=== PATIENT | female | born 1960 | race Asian ===

== ENCOUNTER 2016-08-17 11:41 | Inpatient (IN) | payer OTHER ==
[~2016-08-17] VITALS: Ht 157.5 cm; Wt 90.1 kg
[~2016-08-17 11:41] MED LIST: ALBU8.5H IH; CEPH500 PO; CLOP75 PO; DOXY100C PO; DULO30CA2 PO; FAMO20 PO; FURO40 PO; GABA-531 PO; GLUC500 PO; HYDR25 PO; INSLAN SQ; LORA10TA7 PO; MECL-111 PO; SENN8.6T12 PO; SIMV-260 PO; TRAZ-147 PO
[2016-08-17 12:36] LABS: GLUCOSE,POINT OF CARE 97 MG/DL (70-110)
[2016-08-17 12:38] LABS: BASOPHILS % (AUTO) 0.5 % (0.0-2.0); EOSINOPHILS % (AUTO) 0.6 % (1.0-6.0); HEMATOCRIT 31.2 % (36-46); HEMOGLOBIN 10.3 g/dL (12.0-16.0); LYMPHOCYTES # (AUTO) 2.1 K/uL (1.0-4.8); LYMPHOCYTES % (AUTO) 11.8 % (22.0-44.0); MEAN CORPUSCULAR HEMOGLOBIN 30.2 pg (26.0-34.0); MEAN CORPUSCULAR HGB CONC 32.9 G/dL (31.0-37.0); MEAN CORPUSCULAR VOLUME 92 fL (80-100); MONOCYTES # (AUTO) 1.1 K/uL (0.1-1.0); NEUTROPHILS # (AUTO) 14.4 K/uL (1.8-7.7); NEUTROPHILS % (AUTO) 81.1 % (40.0-70.0); PLATELET COUNT (AUTO) 270 K/uL (150-450); RED CELL DISTRIBUTION WIDTH 13.3 % (11.5-14.5); WHITE BLOOD COUNT (AUTO) 17.7 K/uL (4.5-11.0)
[2016-08-17 12:52] LABS: ANION GAP 10 mmol/L (8-16); CALCIUM, TOTAL 8.9 mg/dL (8.8-10.5); CARBON DIOXIDE 26 mmol/L (22-29); CHLORIDE 103 mmol/L (98-107); CREATININE 2.09 mg/dL (0.60-1.30); GLOMERULAR FILTR. RATE CALC 24 mL/min (>60); SODIUM SERUM 139 mmol/L (136-145); UREA NITROGEN, BLOOD 42 mg/dL (7-18)
[2016-08-17 12:53] LABS: PROTHROMBIN TIME 10.7 SEC (9.4-11.6)
[2016-08-17 12:55] LABS: ALANINE AMINOTRANSFERASE 27 U/L (12-78); ALBUMIN 3.5 g/dL (3.4-5.0); ASPARTATE AMINOTRANSFERASE 25 U/L (15-37); BILIRUBIN,TOTAL 0.3 mg/dL (0.1-1.0); TOTAL PROTEIN, SERUM 7.1 g/dL (6.4-8.2)
[2016-08-17 13:01] LABS: B-TYPE NATRIURETIC PEPTIDE 152 pg/mL (0-100)
[2016-08-17 13:30] LABS: CREATINE KINASE MB 2.3 ng/mL (0-5); CREATINE KINASE, TOTAL 257 U/L (26-192)
[2016-08-17] MEDS ORDERED: ASPIRIN 81 MG CHEWABLE TABLET PO ONE (14:15)
[2016-08-17] MEDS ORDERED: ACETAMINOPHEN 325 MG TABLET PO ONE (14:30)
[2016-08-17] MEDS ORDERED: LEVOFLOXACIN 500 MG/D5% WATER 100 ML IV ONE (15:00)
[2016-08-17] MEDS ORDERED: SULFAMETHOX/TRIMETH DS 800-160 MG/TABLET PO ONE (15:30)
[2016-08-17] MEDS ORDERED: ACETAMINOPHEN 325 MG TABLET PO PRN (15:30)
[2016-08-17] MEDS ORDERED: 0.9% SODIUM CHLORIDE 10 ML SYRINGE IVP PRN (15:30)
[2016-08-17 15:45] LABS: INFLUENZA TYPE B NEGATIVE FOR TYPE B (NEGATIVE)
[2016-08-17] MEDS ORDERED: MAGNESIUM HYDROXIDE SUSPENSION 30 ML UDCUP PO PRN (16:30)
[2016-08-17] MEDS ORDERED: ALBUTEROL SULFATE 2.5 MG/0.5 ML NEB SOLUTION NEB PRN ×2 (16:30→23:00)
[2016-08-17] MEDS ORDERED: *CLINICAL-LEVOFLOXACIN IVPB DOSING CLINICAL ONE ×2 (16:30)
[2016-08-17] MEDS ORDERED: DEXTROSE 50%-WATER 25 GM/50 ML SYRINGE IVP PRN (16:30)
[2016-08-17] MEDS ORDERED: INSULIN ASPART 100 UNITS/ML SQ PRN (16:30)
[2016-08-17] MEDS ORDERED: VANCOMYCIN HCL 1 GM/D5% WATER 200 ML IV ONE (17:00)
[2016-08-17 18:51] LABS: GLUCOSE,POINT OF CARE 288 MG/DL (70-110)
[2016-08-17 19:16] LABS: APPEARANCE,URINE CLEAR (CLEAR); GLUCOSE, URINE (UA) NEGATIVE (NEGATIVE); KETONES,URINE NEGATIVE (NEGATIVE); LEUKOCYTE ESTERASE ,URINE NEGATIVE (NEGATIVE); OCCULT BLOOD,URINE NEGATIVE (NEGATIVE); PH,URINE 5.5 (5.0-8.0); PROTEIN,URINE POS 1+ (NEGATIVE)
[2016-08-17 19:20] LABS: ADD UA MICROSCOPIC NO
[2016-08-17 19:50] VITALS: BP 116/48
[2016-08-17] MEDS: DOCUSATE SODIUM 100 MG CAPSULE PO SCH (22:35)
[2016-08-17] MEDS: HEPARIN SODIUM,PORCINE 5,000 UNITS/ML VIAL SQ SCH (22:36)
[2016-08-17 23:58] VITALS: BP 140/69
[2016-08-18] MEDS: INSULIN ASPART 100 UNITS/ML SQ PRN ×5 (00:21→20:34)
[2016-08-18] MEDS: ACETAMINOPHEN 325 MG TABLET PO PRN ×2 (00:27→20:35)
[2016-08-18] MEDS: OxyCODONE HCL/ACETAMINOPHEN 5-325 MG TABLET PO PRN ×2 (04:47→12:46)
[2016-08-18 04:59] VITALS: BP 120/53
[2016-08-18] MEDS ORDERED: 0.9% SODIUM CHLORIDE 10 ML SYRINGE IVP PRN (05:30)
[2016-08-18] MEDS ORDERED: INFLUENZA VIRUS VACCINE QVS 2016-17 (3YR+)/PF 60 MCG/0.5 ML SYRINGE IM ONE (05:30)
[2016-08-18 06:11] LABS: BASOPHILS % (AUTO) 0.3 % (0.0-2.0); EOSINOPHILS % (AUTO) 0.6 % (1.0-6.0); HEMATOCRIT 27.2 % (36-46); LYMPHOCYTES # (AUTO) 2.4 K/uL (1.0-4.8); LYMPHOCYTES % (AUTO) 14.7 % (22.0-44.0); MEAN CORPUSCULAR HEMOGLOBIN 30.6 pg (26.0-34.0); MEAN CORPUSCULAR HGB CONC 33.2 G/dL (31.0-37.0); MEAN CORPUSCULAR VOLUME 92 fL (80-100); MONOCYTES # (AUTO) 0.6 K/uL (0.1-1.0); MONOCYTES % (AUTO) 3.8 % (2.0-9.0); NEUTROPHILS % (AUTO) 80.6 % (40.0-70.0); PLATELET COUNT (AUTO) 220 K/uL (150-450); RED BLOOD CELL COUNT(AUTO) 2.95 MIL/uL (4.00-5.20); RED CELL DISTRIBUTION WIDTH 13.4 % (11.5-14.5); WHITE BLOOD COUNT (AUTO) 16.1 K/uL (4.5-11.0)
[2016-08-18 07:17] VITALS: BP 113/52
[2016-08-18 07:19] LABS: CALCIUM, TOTAL 8.5 mg/dL (8.8-10.5); CREATININE 2.36 mg/dL (0.60-1.30); POTASSIUM 4.3 mmol/L (3.5-5.1)
[2016-08-18] MEDS: VANCOMYCIN HCL 1 GM/D5% WATER 200 ML IV SCH (09:01)
[2016-08-18] MEDS: DOCUSATE SODIUM 100 MG CAPSULE PO SCH ×2 (09:01→20:32)
[2016-08-18] MEDS: PANTOPRAZOLE SODIUM 40 MG DR TABLET PO SCH (09:01)
[2016-08-18] MEDS: ASPIRIN 81 MG CHEWABLE TABLET PO SCH (09:01)
[2016-08-18] MEDS: HEPARIN SODIUM,PORCINE 5,000 UNITS/ML VIAL SQ SCH ×2 (09:01→20:32)
[2016-08-18 09:26] LABS: GLUCOSE COMMENT 1 Received Meds; GLUCOSE,POINT OF CARE 187 MG/DL (70-110)
[2016-08-18 09:26] LABS: GLUCOSE,POINT OF CARE 347 MG/DL (70-110)
[2016-08-18] MEDS ORDERED: SODIUM CHLORIDE 0.9% 1,000 ML IV ONE (09:28)
[2016-08-18 10:42] VITALS: BP 134/69
[2016-08-18] MEDS: LEVOFLOXACIN 250 MG/D5% WATER 50 ML IV SCH (11:46)
[2016-08-18 15:43] VITALS: BP 114/50
[2016-08-18 17:36] LABS: GLUCOSE COMMENT 1 Received Meds; GLUCOSE,POINT OF CARE 232 MG/DL (70-110)
[2016-08-18 18:01] LABS: GLUCOSE,POINT OF CARE 242 MG/DL (70-110)
[2016-08-18 19:17] VITALS: BP 118/65
[2016-08-18 20:51] LABS: GLUCOSE COMMENT 1 Received Meds; GLUCOSE,POINT OF CARE 257 MG/DL (70-110)
[2016-08-18] MEDS ORDERED: HydrALAZINE HCL 25 MG TABLET PO SCH (21:00)
[2016-08-18] MEDS ORDERED: INSULIN GLARGINE,HUM.REC.ANLOG 100 UNITS/ML SQ SCH (21:00)
[2016-08-18] MEDS ORDERED: CEPHALEXIN MONOHYDRATE 500 MG CAPSULE PO SCH (21:00)
[2016-08-18 23:37] VITALS: BP 136/59
[2016-08-19] MEDS: OxyCODONE HCL/ACETAMINOPHEN 5-325 MG TABLET PO PRN ×5 (00:58→23:27)
[2016-08-19 04:31] VITALS: BP 148/59
[2016-08-19 05:52] LABS: GLUCOSE COMMENT 1 Received Meds; GLUCOSE,POINT OF CARE 240 MG/DL (70-110)
[2016-08-19] MEDS: INSULIN ASPART 100 UNITS/ML SQ PRN ×4 (05:54→19:49)
[2016-08-19 06:49] LABS: BASOPHILS # (AUTO) 0.01 K/uL (0.00-0.20); BASOPHILS % (AUTO) 0.1 % (0.0-2.0); EOSINOPHILS # (AUTO) 0.08 K/uL (0.00-0.70); EOSINOPHILS % (AUTO) 0.92 % (1.0-6.0); HEMOGLOBIN 9.1 g/dL (12.0-16.0); LYMPHOCYTES # (AUTO) 1.8 K/uL (1.0-4.8); LYMPHOCYTES % (AUTO) 19.9 % (22.0-44.0); MEAN CORPUSCULAR HEMOGLOBIN 31.1 pg (26.0-34.0); MEAN CORPUSCULAR HGB CONC 33.8 G/dL (31.0-37.0); MEAN CORPUSCULAR VOLUME 92 fL (80-100); MONOCYTES # (AUTO) 0.8 K/uL (0.1-1.0); MONOCYTES % (AUTO) 8.4 % (2.0-9.0); NEUTROPHILS # (AUTO) 6.4 K/uL (1.8-7.7); NEUTROPHILS % (AUTO) 70.7 % (40.0-70.0); PLATELET COUNT (AUTO) 212 K/uL (150-450); RED BLOOD CELL COUNT(AUTO) 2.93 MIL/uL (4.00-5.20); WHITE BLOOD COUNT (AUTO) 9.1 K/uL (4.5-11.0)
[2016-08-19 06:59] LABS: CALCIUM, TOTAL 8.8 mg/dL (8.8-10.5); CREATININE 2.21 mg/dL (0.60-1.30); POTASSIUM 4.1 mmol/L (3.5-5.1)
[2016-08-19 07:36] VITALS: BP 153/80
[2016-08-19] MEDS: ASPIRIN 81 MG CHEWABLE TABLET PO SCH (08:48)
[2016-08-19] MEDS: HEPARIN SODIUM,PORCINE 5,000 UNITS/ML VIAL SQ SCH ×2 (08:48→19:46)
[2016-08-19] MEDS: DOCUSATE SODIUM 100 MG CAPSULE PO SCH ×2 (08:48→19:46)
[2016-08-19] MEDS: PANTOPRAZOLE SODIUM 40 MG DR TABLET PO SCH (08:48)
[2016-08-19] MEDS ORDERED: SODIUM CHLORIDE 0.9% 500 ML IV ONE (08:57)
[2016-08-19] MEDS ORDERED: FUROSEMIDE 40 MG TABLET PO SCH (09:00)
[2016-08-19] MEDS ORDERED: LORATADINE 10 MG TABLET PO SCH (09:00)
[2016-08-19] MEDS ORDERED: GABAPENTIN 300 MG CAPSULE PO SCH (09:00)
[2016-08-19] MEDS ORDERED: TraZODone HCL 100 MG TABLET PO SCH (09:00)
[2016-08-19] MEDS ORDERED: CLOPIDOGREL BISULFATE 75 MG TABLET PO SCH (09:00)
[2016-08-19] MEDS ORDERED: MECLIZINE HCL 25 MG TABLET PO SCH (09:00)
[2016-08-19] MEDS ORDERED: SIMVASTATIN 20 MG TABLET PO SCH (09:00)
[2016-08-19] MEDS ORDERED: FAMOTIDINE 20 MG TABLET PO SCH (09:00)
[2016-08-19] MEDS ORDERED: DULoxetine HCL 30 MG CAPSULE PO SCH (09:00)
[2016-08-19] MEDS: VANCOMYCIN HCL 1 GM/D5% WATER 200 ML IV SCH (09:07)
[2016-08-19 11:20] VITALS: BP 157/88
[2016-08-19 13:06] LABS: GLUCOSE COMMENT 1 Received Meds; GLUCOSE,POINT OF CARE 237 MG/DL (70-110)
[2016-08-19] MEDS ORDERED: DiphenhydrAMINE HCL 25 MG CAPSULE PO PRN (14:15)
[2016-08-19] MEDS: LEVOFLOXACIN 250 MG/D5% WATER 50 ML IV SCH (14:30)
[2016-08-19 15:35] VITALS: BP 165/89
[2016-08-19 17:51] LABS: GLUCOSE COMMENT 1 Received Meds; GLUCOSE,POINT OF CARE 223 MG/DL (70-110)
[2016-08-19] MEDS ORDERED: LORazepam 2 MG/ML VIAL IVP ONE (18:00)
[2016-08-19 20:02] LABS: GLUCOSE COMMENT 1 Received Meds; GLUCOSE,POINT OF CARE 262 MG/DL (70-110)
[2016-08-19 20:23] VITALS: BP 162/77
[2016-08-20 00:10] VITALS: BP 160/77
[2016-08-20 04:45] VITALS: BP 162/79
[2016-08-20] MEDS: INSULIN ASPART 100 UNITS/ML SQ PRN ×4 (05:39→20:26)
[2016-08-20 06:12] LABS: GLUCOSE COMMENT 1 Received Meds; GLUCOSE,POINT OF CARE 212 MG/DL (70-110)
[2016-08-20 07:14] LABS: CALCIUM, TOTAL 9.4 mg/dL (8.8-10.5); CREATININE 1.84 mg/dL (0.60-1.30); POTASSIUM 4.1 mmol/L (3.5-5.1)
[2016-08-20 07:20] VITALS: BP 148/80
[2016-08-20] MEDS: PANTOPRAZOLE SODIUM 40 MG DR TABLET PO SCH (08:32)
[2016-08-20] MEDS: ASPIRIN 81 MG CHEWABLE TABLET PO SCH (08:33)
[2016-08-20] MEDS: DOCUSATE SODIUM 100 MG CAPSULE PO SCH ×2 (08:33→20:26)
[2016-08-20] MEDS: OxyCODONE HCL/ACETAMINOPHEN 5-325 MG TABLET PO PRN ×2 (08:33→17:45)
[2016-08-20] MEDS: HEPARIN SODIUM,PORCINE 5,000 UNITS/ML VIAL SQ SCH ×2 (08:34→20:26)
[2016-08-20] MEDS: VANCOMYCIN HCL 1 GM/D5% WATER 200 ML IV SCH (08:34)
[2016-08-20] MEDS: OXYGEN THERAPY IH SCH ×2 (08:35→20:02)
[2016-08-20 11:20] VITALS: BP 156/68
[2016-08-20 11:51] LABS: GLUCOSE COMMENT 1 Received Meds; GLUCOSE,POINT OF CARE 200 MG/DL (70-110)
[2016-08-20] MEDS: LEVOFLOXACIN 250 MG/D5% WATER 50 ML IV SCH (15:47)
[2016-08-20 15:54] VITALS: BP 132/68
[2016-08-20 17:16] LABS: GLUCOSE COMMENT 1 Received Meds; GLUCOSE,POINT OF CARE 219 MG/DL (70-110)
[2016-08-20 20:53] VITALS: BP 154/71
[2016-08-21 00:27] VITALS: BP 144/72
[2016-08-21 01:41] LABS: GLUCOSE,POINT OF CARE 213 MG/DL (70-110)
[2016-08-21] MEDS: INSULIN ASPART 100 UNITS/ML SQ PRN ×2 (05:25→11:34)
[2016-08-21 06:08] LABS: BASOPHILS # (AUTO) 0.04 K/uL (0.00-0.20); BASOPHILS % (AUTO) 0.5 % (0.0-2.0); EOSINOPHILS # (AUTO) 0.21 K/uL (0.00-0.70); EOSINOPHILS % (AUTO) 2.52 % (1.0-6.0); HEMATOCRIT 28.3 % (36-46); HEMOGLOBIN 9.6 g/dL (12.0-16.0); LYMPHOCYTES # (AUTO) 2.3 K/uL (1.0-4.8); LYMPHOCYTES % (AUTO) 27.5 % (22.0-44.0); MEAN CORPUSCULAR HEMOGLOBIN 31.1 pg (26.0-34.0); MEAN CORPUSCULAR HGB CONC 33.9 G/dL (31.0-37.0); MEAN CORPUSCULAR VOLUME 92 fL (80-100); MONOCYTES # (AUTO) 0.9 K/uL (0.1-1.0); MONOCYTES % (AUTO) 11.4 % (2.0-9.0); NEUTROPHILS # (AUTO) 4.7 K/uL (1.8-7.7); PLATELET COUNT (AUTO) 242 K/uL (150-450); RED BLOOD CELL COUNT(AUTO) 3.09 MIL/uL (4.00-5.20); RED CELL DISTRIBUTION WIDTH 12.9 % (11.5-14.5); WHITE BLOOD COUNT (AUTO) 8.2 K/uL (4.5-11.0)
[2016-08-21 06:14] LABS: CALCIUM, TOTAL 9.6 mg/dL (8.8-10.5); CREATININE 1.72 mg/dL (0.60-1.30); POTASSIUM 4.2 mmol/L (3.5-5.1)
[2016-08-21 06:24] VITALS: BP 149/78
[2016-08-21 06:31] LABS: GLUCOSE,POINT OF CARE 179 MG/DL (70-110)
[2016-08-21 07:33] VITALS: BP 155/73
[2016-08-21] MEDS ORDERED: VANCOMYCIN HCL 1.25 GM in DEXTROSE 5%-WATER 250 ML IV SCH (08:00)
[2016-08-21] MEDS: OxyCODONE HCL/ACETAMINOPHEN 5-325 MG TABLET PO PRN (08:23)
[2016-08-21] MEDS: DOCUSATE SODIUM 100 MG CAPSULE PO SCH (08:23)
[2016-08-21] MEDS: ASPIRIN 81 MG CHEWABLE TABLET PO SCH (08:23)
[2016-08-21] MEDS: PANTOPRAZOLE SODIUM 40 MG DR TABLET PO SCH (08:23)
[2016-08-21] MEDS: HEPARIN SODIUM,PORCINE 5,000 UNITS/ML VIAL SQ SCH (08:24)
[2016-08-21] MEDS: OXYGEN THERAPY IH SCH (08:26)
[2016-08-21] MEDS ORDERED: LEVO250 PO (10:49)
[2016-08-21 11:26] VITALS: BP 137/66
[2016-08-21 12:01] LABS: GLUCOSE COMMENT 1 Received Meds; GLUCOSE,POINT OF CARE 223 MG/DL (70-110)
== END 2016-08-21 12:30 | disposition home or self-care (01) | DRG 720 ==
LOC: EMS 11:48 → 5S 17:41 → 6N 08-18 14:23
PROVIDERS: ADMIT Internal Medicine; ATTEND Internal Medicine
DX: A41.9 Sepsis, unspecified organism (principal); I13.0 Hypertensive heart and chronic kidney disease with heart failure and stage 1 through stage 4 chronic kidney disease, or unspecified chronic kidney disease; J18.9 Pneumonia, unspecified organism; E44.0 Moderate protein-calorie malnutrition; E11.22 Type 2 diabetes mellitus with diabetic chronic kidney disease; I50.32 Chronic diastolic (congestive) heart failure; N18.3 Chronic kidney disease, stage 3 (moderate); E66.9 Obesity, unspecified; D63.8 Anemia in other chronic diseases classified elsewhere; E78.00 Pure hypercholesterolemia, unspecified; R53.81 Other malaise; M19.90 Unspecified osteoarthritis, unspecified site; M47.816 Spondylosis without myelopathy or radiculopathy, lumbar region; Z79.4 Long term (current) use of insulin; Z88.0 Allergy status to penicillin; Z88.8 Allergy status to other drugs, medicaments and biological substances; Z79.899 Other long term (current) drug therapy; Z79.02 Long term (current) use of antithrombotics/antiplatelets; Z68.36 Body mass index [BMI] 36.0-36.9, adult; Z28.21 Immunization not carried out because of patient refusal
CPT/HCPCS: 82962; 87040; 87804; 93005; 93306; 96365; 96367; 97110; 97116; 97161; 99285; J1644; J1956; J3370; J7030; J7040; J7060

== ENCOUNTER 2017-02-22 11:24 | Emergency (ER) | payer OTHER ==
[~2017-02-22] VITALS: Ht 157.5 cm; Wt 81.8 kg
[~2017-02-22 11:24] MED LIST changes: -CEPH500 PO; -DOXY100C PO; -GABA-531 PO; -HYDR25 PO; -INSLAN SQ; +LEVO250 PO; -LORA10TA7 PO; -MECL-111 PO; -TRAZ-147 PO
[2017-02-22] MEDS ORDERED: CEPH500 PO (11:55)
[2017-02-22] MEDS ORDERED: SODIUM CHLORIDE 0.9% 1,000 ML IV ONE (13:00)
[2017-02-22] MEDS ORDERED: ONDANSETRON HCL 4 MG/2 ML VIAL IVP ONE ×2 (13:00→15:45)
[2017-02-22 13:26] LABS: BASOPHILS # (AUTO) 0.07 K/uL (0.00-0.20); BASOPHILS % (AUTO) 0.7 % (0.0-2.0); EOSINOPHILS # (AUTO) 0.09 K/uL (0.00-0.70); EOSINOPHILS % (AUTO) 0.87 % (1.0-6.0); HEMATOCRIT 30.2 % (36-46); LYMPHOCYTES # (AUTO) 1.6 K/uL (1.0-4.8); LYMPHOCYTES % (AUTO) 16.3 % (22.0-44.0); MEAN CORPUSCULAR HEMOGLOBIN 30.4 pg (26.0-34.0); MEAN CORPUSCULAR VOLUME 92 fL (80-100); MONOCYTES # (AUTO) 0.8 K/uL (0.1-1.0); MONOCYTES % (AUTO) 7.7 % (2.0-9.0); NEUTROPHILS # (AUTO) 7.3 K/uL (1.8-7.7); NEUTROPHILS % (AUTO) 74.4 % (40.0-70.0); PLATELET COUNT (AUTO) 394 K/uL (150-450); RED BLOOD CELL COUNT(AUTO) 3.28 MIL/uL (4.00-5.20); RED CELL DISTRIBUTION WIDTH 12.8 % (11.5-14.5); WHITE BLOOD COUNT (AUTO) 9.8 K/uL (4.5-11.0)
[2017-02-22 13:38] LABS: CALCIUM, TOTAL 9.6 mg/dL (8.8-10.5); CREATININE 2.13 mg/dL (0.60-1.30); POTASSIUM 3.6 mmol/L (3.5-5.1)
[2017-02-22 13:44] LABS: LACTIC ACID 0.5 mmol/L (0.4-2.0)
[2017-02-22 13:54] LABS: ALBUMIN 2.7 g/dL (3.4-5.0); BILIRUBIN,TOTAL 0.3 mg/dL (0.1-1.0); TOTAL PROTEIN, SERUM 7.5 g/dL (6.4-8.2); URIC ACID 8.7 mg/dL (2.6-7.2)
[2017-02-22 15:45] VITALS: BP 142/69
== END 2017-02-22 16:02 | disposition home or self-care (01) ==
LOC: EMS 11:26
DX: R11.2 Nausea with vomiting, unspecified (principal); E11.43 Type 2 diabetes mellitus with diabetic autonomic (poly)neuropathy; K31.84 Gastroparesis; N18.3 Chronic kidney disease, stage 3 (moderate); I10 Essential (primary) hypertension; E78.00 Pure hypercholesterolemia, unspecified; Z88.0 Allergy status to penicillin; Z88.8 Allergy status to other drugs, medicaments and biological substances
CPT/HCPCS: 36415; 80053; 83605; 83690; 84484; 84550; 85025; 93005; 96361; 96374; 96375; 99285; J2405; J7030

== ENCOUNTER → 2017-08-23 | Outpatient (CLI) | payer OTHER ==
[~2017-08-23] VITALS: Ht 157.5 cm; Wt 82.2 kg
[~2017-08-23] MED LIST changes: -ALBU8.5H IH; +ALBU8.5H8 IH; +ALLO100T PO; +CEPH500 PO; +CHLORHEXIDINE GLUCONATE 4% 118 ML TOPICAL LIQUID TP ONE; +CLON-570 PO; -DULO30CA2 PO; +ERGO500014 PO; +GABA-531 PO; -GLUC500 PO; +HYDR-2924 PO; -LEVO250 PO; +MAGN296S PO; -SENN8.6T12 PO
[2017-08-23 14:07] VITALS: BP 147/54
== END | disposition home or self-care (01) ==
LOC: HBOWC 13:04
PROVIDERS: ATTEND Nurse Practitioner Adult Health
DX: L02.212 Cutaneous abscess of back [any part, except buttock and flank] (principal)

== ENCOUNTER → 2018-10-09 | Outpatient (CLI) | payer OTHER ==
[~2018-10-09] MED LIST changes: -CEPH500 PO; -CHLORHEXIDINE GLUCONATE 4% 118 ML TOPICAL LIQUID TP ONE; -CLOP75 PO; +CLOP75TA3 PO
== END | disposition home or self-care (01) ==
LOC: RADPV 08:21
PROVIDERS: ATTEND Internal Medicine Nephrology
DX: I65.23 Occlusion and stenosis of bilateral carotid arteries (principal); N13.39 Other hydronephrosis
CPT/HCPCS: 76770; 93880

== ENCOUNTER 2021-04-08 16:38 | Inpatient (IN) | payer OTHER ==
[~2021-04-08] VITALS: Ht 154.9 cm; Wt 75.0 kg
[~2021-04-08 16:38] MED LIST changes: -ALLO100T PO; +ALLO100T2 PO; -CLON-570 PO; +CLON0.1T2 PO; -CLOP75TA3 PO; +CLOP75TA60 PO; -ERGO500014 PO; +ERGO500054 PO; +GABA-1181 PO; -GABA-531 PO; -HYDR-2924 PO; +HYDR50TA36 PO; -MAGN296S PO; +MAGN296S82 PO
[2021-04-08 19:56] LABS: BASOPHILS % (AUTO) 0.9 % (0.0-2.0); HEMATOCRIT 30.5 % (36-46); HEMOGLOBIN 9.9 g/dL (12.0-16.0); LYMPHOCYTES # (AUTO) 2.8 K/uL (1.0-4.8); LYMPHOCYTES % (AUTO) 21.1 % (22.0-44.0); MEAN CORPUSCULAR HEMOGLOBIN 29.8 pg (26.0-34.0); MEAN CORPUSCULAR HGB CONC 32.3 G/dL (31.0-37.0); MEAN CORPUSCULAR VOLUME 92 fL (80-100); MONOCYTES # (AUTO) 0.8 K/uL (0.1-1.0); MONOCYTES % (AUTO) 6.1 % (2.0-9.0); NEUTROPHILS # (AUTO) 9.3 K/uL (1.8-7.7); NEUTROPHILS % (AUTO) 70.9 % (40.0-70.0); PLATELET COUNT (AUTO) 297 K/uL (150-450); RED BLOOD CELL COUNT(AUTO) 3.31 MIL/uL (4.00-5.20); RED CELL DISTRIBUTION WIDTH 14.8 % (11.5-14.5)
[2021-04-08] MEDS ORDERED: BUME1TAB34 PO (20:02)
[2021-04-08] MEDS ORDERED: CLON0.3T PO (20:02)
[2021-04-08] MEDS ORDERED: HUMLIS7525 SQ (20:02)
[2021-04-08] MEDS ORDERED: ATOR40TA28 PO (20:02)
[2021-04-08] MEDS ORDERED: LACT30L PO (20:02)
[2021-04-08] MEDS ORDERED: OMEP20 PO (20:02)
[2021-04-08 20:06] LABS: CREATININE 3.37 mg/dL (0.60-1.30); POTASSIUM 3.6 mmol/L (3.5-5.1)
[2021-04-08] MEDS ORDERED: SODIUM CHLORIDE 0.9% 1,000 ML IV ONE (20:15)
[2021-04-08] MEDS ORDERED: ONDANSETRON HCL 4 MG/2 ML VIAL IVP ONE ×2 (20:15→23:15)
[2021-04-08 20:31] LABS: ALBUMIN 2.7 g/dL (3.4-5.0); BILIRUBIN,TOTAL 0.3 mg/dL (0.1-1.0); TOTAL PROTEIN, SERUM 6.7 g/dL (6.4-8.2)
[2021-04-08 20:55] LABS: APPEARANCE,URINE CLEAR (CLEAR); BILIRUBIN,URINE NEGATIVE (NEGATIVE); GLUCOSE, URINE (UA) 100 mg/dL (NEGATIVE); KETONES,URINE TRACE mg/dL (NEGATIVE); LEUKOCYTE ESTERASE ,URINE NEGATIVE (NEGATIVE); NITRATE,URINE NEGATIVE (NEGATIVE); OCCULT BLOOD,URINE NEGATIVE (NEGATIVE); PROTEIN,URINE SEE CONFIRM (NEGATIVE); UROBILINOGEN,URINE 0.2 mg/dL (<=1.0)
[2021-04-08 21:13] LABS: PHOSPHORUS 4.7 mg/dL (2.5-4.9)
[2021-04-08] MEDS ORDERED: BISMUTH SUBSALICYLATE 524 MG/30 ML SUSPENSION UDCUP PO ONE (21:15)
[2021-04-08 21:19] LABS: COVID AG,FIA SOURCE NASOPHARYNGEAL
[2021-04-08 21:52] LABS: MAGNESIUM 1.7 mg/dL (1.80-2.40)
[2021-04-08 22:09] LABS: INFLUENZA TYPE A NEGATIVE FOR TYPE A (NEGATIVE); INFLUENZA TYPE B NEGATIVE FOR TYPE B (NEGATIVE)
[2021-04-08 22:16] LABS: BACTERIA,URINE Rare /HPF (None Seen); COARSE GRANULAR CASTS,URINE 0-2 /LPF (None Seen); RBC,URINE 0-2 /HPF (0-2); WBC,URINE 0-2 /HPF (0-5)
[2021-04-08 22:17] LABS: SULFOSALICYLIC ACID,URINE 4+ (Negative)
[2021-04-08] MEDS ORDERED: MORPHINE SULFATE 4 MG/ML SYRINGE IVP ONE (23:15)
[2021-04-08] MEDS ORDERED: SODIUM CHLORIDE 0.45% 1,000 ML IV SCH (23:30)
[2021-04-08] MEDS: HEPARIN SODIUM,PORCINE 5,000 UNITS/ML VIAL SQ SCH (23:42)
[2021-04-08 23:45] LABS: CREATININE,URINE RANDOM 106.1 mg/dL (30.0-125.0)
[2021-04-09] MEDS: ACETAMINOPHEN 325 MG TABLET PO PRN (01:50)
[2021-04-09] MEDS ORDERED: ALBUTEROL SULFATE HFA 90 MCG/PUFF 8 GM INHALER IH PRN (05:00)
[2021-04-09] MEDS ORDERED: DEXTROSE 50%-WATER 25 GM/50 ML SYRINGE IVP PRN (05:00)
[2021-04-09] MEDS: HEPARIN SODIUM,PORCINE 5,000 UNITS/ML VIAL SQ SCH ×2 (08:48→15:45)
[2021-04-09] MEDS ORDERED: OMEPRAZOLE 20 MG CAPSULE PO SCH (09:00)
[2021-04-09 12:45] VITALS: BP 149/81
[2021-04-09 12:51] LABS: GLUCOMETER DEV NAME(LOC) 6S.1; GLUCOSE,POINT OF CARE 174 MG/DL (70-110)
[2021-04-09] MEDS: ONDANSETRON HCL 4 MG/2 ML VIAL IVP PRN (14:22)
[2021-04-09] MEDS ORDERED: SODIUM BICARBONATE 75 MEQ in SODIUM CHLORIDE 0.45% 1,000 ML IV ONE (14:30)
[2021-04-09] MEDS ORDERED: NIFEdipine 30 MG ER TABLET PO SCH (14:30)
[2021-04-09] MEDS ORDERED: DILT-39 PO (14:34)
[2021-04-09] MEDS ORDERED: ERGO500054 PO (14:34)
[2021-04-09] MEDS: HydrALAZINE HCL 50 MG TABLET PO SCH ×2 (15:45→21:04)
[2021-04-09] MEDS: FAMOTIDINE 10 MG/ML 2 ML VIAL IVP SCH (16:52)
[2021-04-09] MEDS: PROCHLORPERAZINE EDISYLATE 5 MG/ML 2 ML VIAL IVP PRN (18:31)
[2021-04-09 18:50] LABS: GLUCOMETER DEV NAME(LOC) 6S.1; GLUCOSE,POINT OF CARE 162 MG/DL (70-110)
[2021-04-09 20:46] VITALS: BP 179/82
[2021-04-09] MEDS: ATORVASTATIN CALCIUM 40 MG TABLET PO SCH (21:04)
[2021-04-09 21:23] VITALS: BP 179/82
[2021-04-09] MEDS ORDERED: DILTIAZEM HCL 5 MG/ML 5 ML VIAL IVP ONE (21:30)
[2021-04-09 22:42] VITALS: BP 158/75
[2021-04-10] MEDS: ONDANSETRON HCL 4 MG/2 ML VIAL IVP PRN ×2 (01:23→09:12)
[2021-04-10] MEDS: HEPARIN SODIUM,PORCINE 5,000 UNITS/ML VIAL SQ SCH ×3 (01:51→18:02)
[2021-04-10 04:09] VITALS: BP 153/58
[2021-04-10 07:17] LABS: % IRON SATURATION 13.6 % (22-44)
[2021-04-10 08:12] VITALS: BP 148/70
[2021-04-10] MEDS: FAMOTIDINE 10 MG/ML 2 ML VIAL IVP SCH (08:55)
[2021-04-10] MEDS: HydrALAZINE HCL 50 MG TABLET PO SCH ×3 (08:55→20:16)
[2021-04-10 11:21] VITALS: BP 129/66
[2021-04-10 12:12] LABS: BASOPHILS % (AUTO) 0.5 % (0.0-2.0); EOSINOPHILS % (AUTO) 0.2 % (1.0-6.0); HEMATOCRIT 29.8 % (36-46); HEMOGLOBIN 9.6 g/dL (12.0-16.0); LYMPHOCYTES # (AUTO) 1.3 K/uL (1.0-4.8); LYMPHOCYTES % (AUTO) 11.6 % (22.0-44.0); MEAN CORPUSCULAR HEMOGLOBIN 30.1 pg (26.0-34.0); MEAN CORPUSCULAR HGB CONC 32.3 G/dL (31.0-37.0); MEAN CORPUSCULAR VOLUME 93 fL (80-100); MONOCYTES # (AUTO) 0.9 K/uL (0.1-1.0); MONOCYTES % (AUTO) 8.3 % (2.0-9.0); NEUTROPHILS # (AUTO) 8.8 K/uL (1.8-7.7); NEUTROPHILS % (AUTO) 79.4 % (40.0-70.0); PLATELET COUNT (AUTO) 271 K/uL (150-450); RED BLOOD CELL COUNT(AUTO) 3.21 MIL/uL (4.00-5.20); RED CELL DISTRIBUTION WIDTH 14.9 % (11.5-14.5)
[2021-04-10 12:14] LABS: CREATININE 3.63 mg/dL (0.60-1.30); POTASSIUM 3.3 mmol/L (3.5-5.1)
[2021-04-10 12:19] LABS: ALBUMIN 2.8 g/dL (3.4-5.0); BILIRUBIN,TOTAL 0.4 mg/dL (0.1-1.0); TOTAL PROTEIN, SERUM 6.7 g/dL (6.4-8.2)
[2021-04-10] MEDS: SOD FERRIC GLUC COMPLX/SUCROSE 125 MG in SODIUM CHLORIDE 0.9% 100 ML IV SCH (12:47)
[2021-04-10] MEDS: PROCHLORPERAZINE EDISYLATE 5 MG/ML 2 ML VIAL IVP PRN ×2 (12:50→21:28)
[2021-04-10 17:04] VITALS: BP 126/74
[2021-04-10] MEDS ORDERED: DEXTROSE 50%-WATER 25 GM/50 ML SYRINGE IVP PRN (17:15)
[2021-04-10] MEDS: INSULIN LISPRO 100 UNITS/ML SQ PRN (18:03)
[2021-04-10 18:23] LABS: COLLECTION TIME,URINE 24 HR; TPROTEIN TIMED,URINE 1020 mg/dL; TPROTEIN URINE, 24HRS COLL 11475 mg/24Hr (0-165)
[2021-04-10] MEDS ORDERED: POTASSIUM CHLORIDE 20 MEQ ER TABLET PO ONE (18:45)
[2021-04-10 19:10] VITALS: BP 154/72
[2021-04-10] MEDS: ATORVASTATIN CALCIUM 40 MG TABLET PO SCH (20:16)
[2021-04-11] VITALS (7 sets, daily range): BP systolic 113–151; BP diastolic 47–69
[2021-04-11] MEDS: HEPARIN SODIUM,PORCINE 5,000 UNITS/ML VIAL SQ SCH ×4 (00:34→23:48)
[2021-04-11 00:57] LABS: GLUCOMETER DEV NAME(LOC) 5N.1C; GLUCOSE,POINT OF CARE 253 MG/DL (70-110)
[2021-04-11 00:57] LABS: GLUCOMETER DEV NAME(LOC) 5N.3; GLUCOSE,POINT OF CARE 248 MG/DL (70-110)
[2021-04-11 00:57] LABS: GLUCOMETER DEV NAME(LOC) 5N.3; GLUCOSE,POINT OF CARE 213 MG/DL (70-110)
[2021-04-11 00:57] LABS: GLUCOMETER DEV NAME(LOC) 5N.1C; GLUCOSE,POINT OF CARE 259 MG/DL (70-110)
[2021-04-11 04:43] LABS: CREATININE,URINE RANDOM 108.9 mg/dL (30.0-125.0)
[2021-04-11] MEDS: ONDANSETRON HCL 4 MG/2 ML VIAL IVP PRN ×2 (06:29→22:23)
[2021-04-11] MEDS: INSULIN LISPRO 100 UNITS/ML SQ PRN ×4 (07:06→20:12)
[2021-04-11] MEDS: FAMOTIDINE 10 MG/ML 2 ML VIAL IVP SCH (09:20)
[2021-04-11] MEDS: HydrALAZINE HCL 50 MG TABLET PO SCH ×3 (09:25→20:10)
[2021-04-11] MEDS ORDERED: DIGOXIN 250 MCG/ML 2 ML AMP IVP ONE (10:45)
[2021-04-11 12:28] LABS: CREATININE 3.67 mg/dL (0.60-1.30); POTASSIUM 3.5 mmol/L (3.5-5.1)
[2021-04-11 12:35] LABS: BASOPHILS % (AUTO) 0.5 % (0.0-2.0); EOSINOPHILS % (AUTO) 0.2 % (1.0-6.0); HEMATOCRIT 27.9 % (36-46); LYMPHOCYTES # (AUTO) 1.4 K/uL (1.0-4.8); LYMPHOCYTES % (AUTO) 9.6 % (22.0-44.0); MEAN CORPUSCULAR HEMOGLOBIN 30.1 pg (26.0-34.0); MEAN CORPUSCULAR HGB CONC 32.3 G/dL (31.0-37.0); MEAN CORPUSCULAR VOLUME 93 fL (80-100); MONOCYTES # (AUTO) 0.8 K/uL (0.1-1.0); MONOCYTES % (AUTO) 5.5 % (2.0-9.0); NEUTROPHILS # (AUTO) 12.5 K/uL (1.8-7.7); NEUTROPHILS % (AUTO) 84.2 % (40.0-70.0); PLATELET COUNT (AUTO) 248 K/uL (150-450); RED BLOOD CELL COUNT(AUTO) 2.99 MIL/uL (4.00-5.20); RED CELL DISTRIBUTION WIDTH 14.7 % (11.5-14.5)
[2021-04-11] MEDS: SOD FERRIC GLUC COMPLX/SUCROSE 125 MG in SODIUM CHLORIDE 0.9% 100 ML IV SCH (12:36)
[2021-04-11 12:43] LABS: ALBUMIN 2.5 g/dL (3.4-5.0); BILIRUBIN,TOTAL 0.4 mg/dL (0.1-1.0); FREE T4 (FREE THYROXINE) 1.28 ng/dL (0.76-1.46); THYROID STIMULATING HORMONE 0.51 uIU/mL (0.36-3.74); TOTAL PROTEIN, SERUM 6.6 g/dL (6.4-8.2)
[2021-04-11 12:56] LABS: GLUCOMETER DEV NAME(LOC) 5N.3; GLUCOSE,POINT OF CARE 229 MG/DL (70-110)
[2021-04-11] MEDS: POTASSIUM CHL 10 MEQ/WATER 50 ML IV SCH ×3 (14:24→18:05)
[2021-04-11] MEDS ORDERED: SODIUM CHLORIDE 0.9% 1,000 ML ONE (14:38)
[2021-04-11] MEDS ORDERED: METOPROLOL SUCCINATE 25 MG ER TABLET PO SCH (16:15)
[2021-04-11] MEDS: PROCHLORPERAZINE EDISYLATE 5 MG/ML 2 ML VIAL IVP PRN (16:29)
[2021-04-11] MEDS: ATORVASTATIN CALCIUM 40 MG TABLET PO SCH (20:10)
[2021-04-11 20:22] LABS: GLUCOMETER DEV NAME(LOC) 5N.1C; GLUCOSE,POINT OF CARE 254 MG/DL (70-110)
[2021-04-11 20:22] LABS: GLUCOMETER DEV NAME(LOC) 5N.1C; GLUCOSE,POINT OF CARE 213 MG/DL (70-110)
[2021-04-12 00:33] LABS: GLUCOMETER DEV NAME(LOC) 5N.3; GLUCOSE,POINT OF CARE 228 MG/DL (70-110)
[2021-04-12 05:12] VITALS: BP 169/88
[2021-04-12] MEDS: INSULIN LISPRO 100 UNITS/ML SQ PRN ×4 (05:53→21:46)
[2021-04-12 06:24] LABS: GLUCOMETER DEV NAME(LOC) 5S.2B; GLUCOSE,POINT OF CARE 205 MG/DL (70-110)
[2021-04-12 06:49] LABS: BASOPHILS % (AUTO) 0.5 % (0.0-2.0); EOSINOPHILS % (AUTO) 0.3 % (1.0-6.0); HEMATOCRIT 29.6 % (36-46); HEMOGLOBIN 9.7 g/dL (12.0-16.0); LYMPHOCYTES # (AUTO) 1.3 K/uL (1.0-4.8); LYMPHOCYTES % (AUTO) 8.1 % (22.0-44.0); MEAN CORPUSCULAR HEMOGLOBIN 30.6 pg (26.0-34.0); MEAN CORPUSCULAR HGB CONC 32.9 G/dL (31.0-37.0); MEAN CORPUSCULAR VOLUME 93 fL (80-100); MONOCYTES # (AUTO) 0.8 K/uL (0.1-1.0); MONOCYTES % (AUTO) 4.9 % (2.0-9.0); NEUTROPHILS # (AUTO) 14.1 K/uL (1.8-7.7); PLATELET COUNT (AUTO) 253 K/uL (150-450); RED BLOOD CELL COUNT(AUTO) 3.18 MIL/uL (4.00-5.20); RED CELL DISTRIBUTION WIDTH 14.8 % (11.5-14.5)
[2021-04-12 07:13] LABS: ALBUMIN 2.6 g/dL (3.4-5.0); BILIRUBIN,TOTAL 0.4 mg/dL (0.1-1.0); CREATININE 3.33 mg/dL (0.60-1.30); POTASSIUM 3.8 mmol/L (3.5-5.1); TOTAL PROTEIN, SERUM 6.6 g/dL (6.4-8.2)
[2021-04-12 07:16] LABS: NEUTROPHILS % (AUTO) 86.2 % (40.0-70.0)
[2021-04-12 07:56] VITALS: BP 163/73
[2021-04-12] MEDS: HydrALAZINE HCL 50 MG TABLET PO SCH ×3 (08:19→20:25)
[2021-04-12] MEDS: FAMOTIDINE 10 MG/ML 2 ML VIAL IVP SCH (08:22)
[2021-04-12] MEDS: HEPARIN SODIUM,PORCINE 5,000 UNITS/ML VIAL SQ SCH ×2 (08:22→15:17)
[2021-04-12 11:27] VITALS: BP 147/52
[2021-04-12] MEDS: SOD FERRIC GLUC COMPLX/SUCROSE 125 MG in SODIUM CHLORIDE 0.9% 100 ML IV SCH (12:10)
[2021-04-12] MEDS ORDERED: DILTIAZEM HCL 125 MG in DEXTROSE 5%-WATER 100 ML IV SCH (12:15)
[2021-04-12] MEDS: CefTRIAXone 1 GM/DEXTROSE 50 ML IV SCH (13:58)
[2021-04-12 15:53] VITALS: BP 139/75
[2021-04-12] MEDS: DILTIAZEM HCL CD 120 MG ER CAPSULE PO SCH (17:32)
[2021-04-12 17:37] LABS: GLUCOMETER DEV NAME(LOC) 5N.3; GLUCOSE,POINT OF CARE 260 MG/DL (70-110)
[2021-04-12 20:14] VITALS: BP 136/78
[2021-04-12] MEDS: ATORVASTATIN CALCIUM 40 MG TABLET PO SCH (20:25)
[2021-04-13] VITALS (7 sets, daily range): BP systolic 104–155; BP diastolic 5–100
[2021-04-13] MEDS: HEPARIN SODIUM,PORCINE 5,000 UNITS/ML VIAL SQ SCH ×4 (00:41→23:55)
[2021-04-13 03:41] LABS: GLUCOMETER DEV NAME(LOC) 5S.2B; GLUCOSE,POINT OF CARE 247 MG/DL (70-110)
[2021-04-13] MEDS: ONDANSETRON HCL 4 MG/2 ML VIAL IVP PRN ×2 (05:18→12:04)
[2021-04-13] MEDS: INSULIN LISPRO 100 UNITS/ML SQ PRN ×4 (06:11→22:04)
[2021-04-13 08:11] LABS: BASOPHILS % (AUTO) 0.9 % (0.0-2.0); EOSINOPHILS % (AUTO) 0.9 % (1.0-6.0); HEMATOCRIT 30.5 % (36-46); HEMOGLOBIN 9.9 g/dL (12.0-16.0); LYMPHOCYTES # (AUTO) 1.5 K/uL (1.0-4.8); LYMPHOCYTES % (AUTO) 14.4 % (22.0-44.0); MEAN CORPUSCULAR HEMOGLOBIN 30.3 pg (26.0-34.0); MEAN CORPUSCULAR HGB CONC 32.6 G/dL (31.0-37.0); MEAN CORPUSCULAR VOLUME 93 fL (80-100); MONOCYTES # (AUTO) 0.8 K/uL (0.1-1.0); MONOCYTES % (AUTO) 7.7 % (2.0-9.0); NEUTROPHILS # (AUTO) 8.2 K/uL (1.8-7.7); NEUTROPHILS % (AUTO) 76.1 % (40.0-70.0); PLATELET COUNT (AUTO) 227 K/uL (150-450); RED BLOOD CELL COUNT(AUTO) 3.27 MIL/uL (4.00-5.20); RED CELL DISTRIBUTION WIDTH 14.5 % (11.5-14.5)
[2021-04-13] MEDS: FAMOTIDINE 10 MG/ML 2 ML VIAL IVP SCH (08:17)
[2021-04-13] MEDS: DILTIAZEM HCL CD 120 MG ER CAPSULE PO SCH (08:18)
[2021-04-13] MEDS: HydrALAZINE HCL 50 MG TABLET PO SCH ×3 (08:18→21:16)
[2021-04-13 08:22] LABS: ALBUMIN 2.2 g/dL (3.4-5.0); BILIRUBIN,TOTAL 0.3 mg/dL (0.1-1.0); CALCIUM, TOTAL 8.8 mg/dL (8.8-10.5); CREATININE 3.64 mg/dL (0.60-1.30); MAGNESIUM 1.7 mg/dL (1.80-2.40); POTASSIUM 3.7 mmol/L (3.5-5.1); TOTAL PROTEIN, SERUM 6.3 g/dL (6.4-8.2)
[2021-04-13 12:22] LABS: GLUCOMETER DEV NAME(LOC) 5S.1; GLUCOSE,POINT OF CARE 219 MG/DL (70-110)
[2021-04-13] MEDS: SOD FERRIC GLUC COMPLX/SUCROSE 125 MG in SODIUM CHLORIDE 0.9% 100 ML IV SCH (12:25)
[2021-04-13] MEDS: CefTRIAXone 1 GM/DEXTROSE 50 ML IV SCH (14:29)
[2021-04-13 16:58] LABS: APPEARANCE,URINE CLEAR (CLEAR); BILIRUBIN,URINE NEGATIVE (NEGATIVE); GLUCOSE, URINE (UA) 500 mg/dL (NEGATIVE); KETONES,URINE TRACE mg/dL (NEGATIVE); LEUKOCYTE ESTERASE ,URINE TRACE (NEGATIVE); NITRATE,URINE NEGATIVE (NEGATIVE); OCCULT BLOOD,URINE TRACE (NEGATIVE); PH,URINE 6.5 (5.0-8.0); PROTEIN,URINE SEE CONFIRM (NEGATIVE); UROBILINOGEN,URINE 0.2 mg/dL (<=1.0)
[2021-04-13 17:04] LABS: BACTERIA,URINE Rare /HPF (None Seen); RBC,URINE 0-2 /HPF (0-2); SQUAMOUS EPITHELIAL CELL,UR Few /LPF (None Seen); SULFOSALICYLIC ACID,URINE 3+ (Negative)
[2021-04-13 19:47] LABS: GLUCOMETER DEV NAME(LOC) 5N.1C; GLUCOSE,POINT OF CARE 258 MG/DL (70-110)
[2021-04-13 19:47] LABS: GLUCOMETER DEV NAME(LOC) 5N.1C; GLUCOSE,POINT OF CARE 294 MG/DL (70-110)
[2021-04-13] MEDS: ATORVASTATIN CALCIUM 40 MG TABLET PO SCH (21:16)
[2021-04-14] VITALS (7 sets, daily range): BP systolic 133–163; BP diastolic 58–80
[2021-04-14] MEDS: ACETAMINOPHEN 325 MG TABLET PO PRN ×2 (04:46→18:32)
[2021-04-14] MEDS ORDERED: SODIUM CHLORIDE 0.9% 1,000 ML ONE (04:55)
[2021-04-14] MEDS: INSULIN LISPRO 100 UNITS/ML SQ PRN ×4 (05:40→20:35)
[2021-04-14] MEDS: OMEPRAZOLE 20 MG CAPSULE PO SCH (06:16)
[2021-04-14] MEDS: ONDANSETRON HCL 4 MG/2 ML VIAL IVP PRN (07:59)
[2021-04-14] MEDS: HEPARIN SODIUM,PORCINE 5,000 UNITS/ML VIAL SQ SCH ×2 (08:02→15:56)
[2021-04-14] MEDS: HydrALAZINE HCL 50 MG TABLET PO SCH ×4 (08:04→21:00)
[2021-04-14] MEDS: DILTIAZEM HCL CD 120 MG ER CAPSULE PO SCH (08:04)
[2021-04-14 09:34] LABS: BASOPHILS % (AUTO) 0.9 % (0.0-2.0); HEMATOCRIT 28.8 % (36-46); HEMOGLOBIN 9.6 g/dL (12.0-16.0); LYMPHOCYTES % (AUTO) 22.7 % (22.0-44.0); MEAN CORPUSCULAR HGB CONC 33.3 G/dL (31.0-37.0); MEAN CORPUSCULAR VOLUME 93 fL (80-100); MONOCYTES % (AUTO) 10.9 % (2.0-9.0); NEUTROPHILS # (AUTO) 5.6 K/uL (1.8-7.7); NEUTROPHILS % (AUTO) 63.5 % (40.0-70.0); PLATELET COUNT (AUTO) 241 K/uL (150-450); RED CELL DISTRIBUTION WIDTH 14.9 % (11.5-14.5)
[2021-04-14 10:03] LABS: ALBUMIN 2.5 g/dL (3.4-5.0); BILIRUBIN,TOTAL 0.2 mg/dL (0.1-1.0); CREATININE 3.99 mg/dL (0.60-1.30); POTASSIUM 3.6 mmol/L (3.5-5.1); TOTAL PROTEIN, SERUM 6.5 g/dL (6.4-8.2)
[2021-04-14] MEDS: DOXAZOSIN MESYLATE 2 MG TABLET PO SCH (12:19)
[2021-04-14 12:33] LABS: GLUCOMETER DEV NAME(LOC) 5S.2B; GLUCOSE,POINT OF CARE 297 MG/DL (70-110)
[2021-04-14 12:33] LABS: GLUCOMETER DEV NAME(LOC) 5S.1; GLUCOSE,POINT OF CARE 261 MG/DL (70-110)
[2021-04-14 12:33] LABS: GLUCOMETER DEV NAME(LOC) 5S.1; GLUCOSE,POINT OF CARE 220 MG/DL (70-110)
[2021-04-14] MEDS: SOD FERRIC GLUC COMPLX/SUCROSE 125 MG in SODIUM CHLORIDE 0.9% 100 ML IV SCH (12:50)
[2021-04-14] MEDS: CefTRIAXone 1 GM/DEXTROSE 50 ML IV SCH (14:13)
[2021-04-14] MEDS: ATORVASTATIN CALCIUM 40 MG TABLET PO SCH (20:33)
[2021-04-14] MEDS: APIXABAN 2.5 MG TABLET PO SCH (21:14)
[2021-04-15] VITALS (8 sets, daily range): BP systolic 96–149; BP diastolic 50–70
[2021-04-15 00:32] LABS: GLUCOMETER DEV NAME(LOC) 5S.2B; GLUCOSE,POINT OF CARE 288 MG/DL (70-110)
[2021-04-15 00:32] LABS: GLUCOMETER DEV NAME(LOC) 5S.2B; GLUCOSE,POINT OF CARE 288 MG/DL (70-110)
[2021-04-15] MEDS: OMEPRAZOLE 20 MG CAPSULE PO SCH (05:52)
[2021-04-15] MEDS: INSULIN LISPRO 100 UNITS/ML SQ PRN ×4 (05:53→20:37)
[2021-04-15 06:45] LABS: BASOPHILS % (AUTO) 0.7 % (0.0-2.0); HEMATOCRIT 25.9 % (36-46); HEMOGLOBIN 8.6 g/dL (12.0-16.0); LYMPHOCYTES # (AUTO) 1.9 K/uL (1.0-4.8); LYMPHOCYTES % (AUTO) 26.9 % (22.0-44.0); MEAN CORPUSCULAR HGB CONC 33.3 G/dL (31.0-37.0); MEAN CORPUSCULAR VOLUME 93 fL (80-100); MONOCYTES # (AUTO) 0.9 K/uL (0.1-1.0); MONOCYTES % (AUTO) 13.1 % (2.0-9.0); NEUTROPHILS % (AUTO) 57.3 % (40.0-70.0); PLATELET COUNT (AUTO) 215 K/uL (150-450); RED BLOOD CELL COUNT(AUTO) 2.78 MIL/uL (4.00-5.20); RED CELL DISTRIBUTION WIDTH 14.8 % (11.5-14.5)
[2021-04-15 07:21] LABS: ALBUMIN 2.2 g/dL (3.4-5.0); BILIRUBIN,TOTAL 0.2 mg/dL (0.1-1.0); CALCIUM, TOTAL 8.1 mg/dL (8.8-10.5); CREATININE 4.28 mg/dL (0.60-1.30); POTASSIUM 3.4 mmol/L (3.5-5.1); TOTAL PROTEIN, SERUM 5.6 g/dL (6.4-8.2)
[2021-04-15] MEDS: APIXABAN 2.5 MG TABLET PO SCH ×2 (08:44→20:32)
[2021-04-15 09:00] LABS: GLUCOMETER DEV NAME(LOC) 5S.2B; GLUCOSE,POINT OF CARE 227 MG/DL (70-110)
[2021-04-15] MEDS: HydrALAZINE HCL 50 MG TABLET PO SCH ×3 (09:00→20:36)
[2021-04-15] MEDS: DOXAZOSIN MESYLATE 2 MG TABLET PO SCH (09:00)
[2021-04-15] MEDS: POTASSIUM CHL 10 MEQ/WATER 50 ML IV SCH ×4 (10:42→16:04)
[2021-04-15 13:03] LABS: GLUCOMETER DEV NAME(LOC) 5S.2B; GLUCOSE,POINT OF CARE 255 MG/DL (70-110)
[2021-04-15] MEDS: SOD FERRIC GLUC COMPLX/SUCROSE 125 MG in SODIUM CHLORIDE 0.9% 100 ML IV SCH (14:21)
[2021-04-15] MEDS: CefTRIAXone 1 GM/DEXTROSE 50 ML IV SCH (15:28)
[2021-04-15] MEDS: DILTIAZEM HCL CD 180 MG ER CAPSULE PO SCH (15:43)
[2021-04-15 17:43] LABS: GLUCOMETER DEV NAME(LOC) 5S.2B; GLUCOSE,POINT OF CARE 243 MG/DL (70-110)
[2021-04-15] MEDS: ATORVASTATIN CALCIUM 40 MG TABLET PO SCH (20:32)
[2021-04-16 01:03] LABS: GLUCOMETER DEV NAME(LOC) 5S.2B; GLUCOSE,POINT OF CARE 214 MG/DL (70-110)
[2021-04-16 04:27] VITALS: BP 138/56
[2021-04-16] MEDS: ACETAMINOPHEN 325 MG TABLET PO PRN ×2 (04:36→12:54)
[2021-04-16] MEDS: INSULIN LISPRO 100 UNITS/ML SQ PRN ×2 (06:12→11:22)
[2021-04-16 06:28] LABS: BASOPHILS % (AUTO) 0.6 % (0.0-2.0); EOSINOPHILS % (AUTO) 2.4 % (1.0-6.0); HEMATOCRIT 26.3 % (36-46); HEMOGLOBIN 8.8 g/dL (12.0-16.0); LYMPHOCYTES # (AUTO) 1.6 K/uL (1.0-4.8); LYMPHOCYTES % (AUTO) 23.6 % (22.0-44.0); MEAN CORPUSCULAR HEMOGLOBIN 31.2 pg (26.0-34.0); MEAN CORPUSCULAR HGB CONC 33.5 G/dL (31.0-37.0); MEAN CORPUSCULAR VOLUME 93 fL (80-100); MONOCYTES # (AUTO) 0.9 K/uL (0.1-1.0); MONOCYTES % (AUTO) 12.8 % (2.0-9.0); NEUTROPHILS # (AUTO) 4.2 K/uL (1.8-7.7); NEUTROPHILS % (AUTO) 60.6 % (40.0-70.0); PLATELET COUNT (AUTO) 223 K/uL (150-450); RED BLOOD CELL COUNT(AUTO) 2.83 MIL/uL (4.00-5.20)
[2021-04-16 06:39] LABS: GLUCOMETER DEV NAME(LOC) 5S.1; GLUCOSE,POINT OF CARE 197 MG/DL (70-110)
[2021-04-16 06:43] LABS: ALBUMIN 2.5 g/dL (3.4-5.0); BILIRUBIN,TOTAL 0.2 mg/dL (0.1-1.0); CALCIUM, TOTAL 8.2 mg/dL (8.8-10.5); CREATININE 4.52 mg/dL (0.60-1.30); MAGNESIUM 1.9 mg/dL (1.80-2.40); PHOSPHORUS 3.1 mg/dL (2.5-4.9); POTASSIUM 3.9 mmol/L (3.5-5.1); TOTAL PROTEIN, SERUM 5.9 g/dL (6.4-8.2)
[2021-04-16] MEDS: DILTIAZEM HCL CD 180 MG ER CAPSULE PO SCH (07:56)
[2021-04-16] MEDS: APIXABAN 2.5 MG TABLET PO SCH (07:56)
[2021-04-16 08:00] VITALS: BP 140/54
[2021-04-16] MEDS: DOXAZOSIN MESYLATE 2 MG TABLET PO SCH (08:57)
[2021-04-16] MEDS: HydrALAZINE HCL 50 MG TABLET PO SCH (08:58)
[2021-04-16 10:52] VITALS: BP 120/55
[2021-04-16] MEDS ORDERED: APIX2.5T PO (12:59)
[2021-04-16] MEDS: SOD FERRIC GLUC COMPLX/SUCROSE 125 MG in SODIUM CHLORIDE 0.9% 100 ML IV SCH (13:00)
[2021-04-16] MEDS ORDERED: DOXA2TAB PO (13:00)
[2021-04-16] MEDS: CefTRIAXone 1 GM/DEXTROSE 50 ML IV SCH (14:00)
[2021-04-16 22:06] LABS: GLUCOMETER DEV NAME(LOC) 5S.1; GLUCOSE,POINT OF CARE 191 MG/DL (70-110)
== END 2021-04-16 14:10 | disposition home or self-care (01) | DRG 682 ==
LOC: EMS 16:38 → 6S 04-09 06:24 → 5N 04-09 21:55 → 5S 04-12 16:50
PROVIDERS: ADMIT Internal Medicine; ATTEND Internal Medicine
DX: N17.9 Acute kidney failure, unspecified (principal); E43 Unspecified severe protein-calorie malnutrition; K52.9 Noninfective gastroenteritis and colitis, unspecified; E11.22 Type 2 diabetes mellitus with diabetic chronic kidney disease; E11.319 Type 2 diabetes mellitus with unspecified diabetic retinopathy without macular edema; E11.51 Type 2 diabetes mellitus with diabetic peripheral angiopathy without gangrene; I12.9 Hypertensive chronic kidney disease with stage 1 through stage 4 chronic kidney disease, or unspecified chronic kidney disease; I48.91 Unspecified atrial fibrillation; I65.29 Occlusion and stenosis of unspecified carotid artery; E86.0 Dehydration; E11.65 Type 2 diabetes mellitus with hyperglycemia; E55.9 Vitamin D deficiency, unspecified; E78.5 Hyperlipidemia, unspecified; E87.6 Hypokalemia; K21.9 Gastro-esophageal reflux disease without esophagitis; E78.00 Pure hypercholesterolemia, unspecified; N18.9 Chronic kidney disease, unspecified; D63.1 Anemia in chronic kidney disease; Z20.822 Contact with and (suspected) exposure to COVID-19; Z83.3 Family history of diabetes mellitus; E27.8 Other specified disorders of adrenal gland; Z86.14 Personal history of Methicillin resistant Staphylococcus aureus infection; Z88.0 Allergy status to penicillin; Z88.8 Allergy status to other drugs, medicaments and biological substances; Z68.31 Body mass index [BMI] 31.0-31.9, adult
CPT/HCPCS: 71045; 74022; 74176; 80053; 81001; 81002; 81050; 82043; 82306; 82550; 82570; 82728; 82962; 83540; 83550; 83690; 83735; 83880; 83970; 84100; 84156; 84166; 84300; 84439; 84443; 84484; 85025; 87040; 87086; 87804; 93005; 93306; 97162; 99285; J0696; J0780; J1160; J1644; J2270; J2405; J2916; J3480; J3490; J7030; J7050; J7060; 36415-L1; 36415-TC; U0003

== ENCOUNTER 2021-05-12 17:29 | Inpatient (IN) | payer OTHER ==
[~2021-05-12] VITALS: Ht 154.9 cm; Wt 83.1 kg
[~2021-05-12 17:29] MED LIST changes: -ALLO100T2 PO; +APIX2.5T PO; +ATOR40TA28 PO; -CLON0.1T2 PO; -CLOP75TA60 PO; +DILT-95 PO; -FAMO20 PO; -FURO40 PO; -GABA-1181 PO; -MAGN296S82 PO; +OMEP20 PO; -SIMV-260 PO
[2021-05-12 18:51] LABS: BASOPHILS % (AUTO) 0.7 % (0.0-2.0); HEMATOCRIT 27.3 % (36-46); HEMOGLOBIN 9.2 g/dL (12.0-16.0); LYMPHOCYTES # (AUTO) 1.4 K/uL (1.0-4.8); LYMPHOCYTES % (AUTO) 16.1 % (22.0-44.0); MEAN CORPUSCULAR HEMOGLOBIN 33.1 pg (26.0-34.0); MEAN CORPUSCULAR HGB CONC 33.6 G/dL (31.0-37.0); MEAN CORPUSCULAR VOLUME 99 fL (80-100); MONOCYTES # (AUTO) 0.5 K/uL (0.1-1.0); MONOCYTES % (AUTO) 6.2 % (2.0-9.0); NEUTROPHILS # (AUTO) 6.6 K/uL (1.8-7.7); PLATELET COUNT (AUTO) 257 K/uL (150-450); RED BLOOD CELL COUNT(AUTO) 2.77 MIL/uL (4.00-5.20); RED CELL DISTRIBUTION WIDTH 18.3 % (11.5-14.5)
[2021-05-12] MEDS ORDERED: ONDANSETRON HCL 4 MG TABLET PO ONE (19:00)
[2021-05-12 19:02] LABS: CALCIUM, TOTAL 8.7 mg/dL (8.8-10.5); CREATININE 3.37 mg/dL (0.60-1.30); POTASSIUM 3.2 mmol/L (3.5-5.1)
[2021-05-12 19:26] LABS: ALBUMIN 2.7 g/dL (3.4-5.0); BILIRUBIN,TOTAL 0.4 mg/dL (0.1-1.0); MAGNESIUM 1.4 mg/dL (1.80-2.40); TOTAL PROTEIN, SERUM 6.2 g/dL (6.4-8.2)
[2021-05-12] MEDS ORDERED: SODIUM CHLORIDE 0.9% 1,000 ML IV ONE (19:30)
[2021-05-12] MEDS ORDERED: POTASSIUM CHLORIDE 20 MEQ ER TABLET PO ONE (19:30)
[2021-05-12 20:55] LABS: GLUCOMETER DEV NAME(LOC) ERT.5; GLUCOSE,POINT OF CARE 112 MG/DL (70-110)
[2021-05-12 21:15] LABS: COVID AG,FIA SOURCE NASOPHARYNGEAL
[2021-05-12] MEDS ORDERED: ACETAMINOPHEN 325 MG TABLET PO PRN (23:00)
[2021-05-12] MEDS ORDERED: 0.9% SODIUM CHLORIDE 10 ML SYRINGE IVP PRN (23:00)
[2021-05-12] MEDS ORDERED: ONDANSETRON HCL 4 MG/2 ML VIAL IVP PRN (23:00)
[2021-05-12 23:40] LABS: APPEARANCE,URINE CLEAR (CLEAR); BILIRUBIN,URINE NEGATIVE (NEGATIVE); GLUCOSE, URINE (UA) NEGATIVE (NEGATIVE); KETONES,URINE NEGATIVE (NEGATIVE); LEUKOCYTE ESTERASE ,URINE NEGATIVE (NEGATIVE); NITRATE,URINE NEGATIVE (NEGATIVE); OCCULT BLOOD,URINE NEGATIVE (NEGATIVE); PROTEIN,URINE SEE CONFIRM (NEGATIVE); UROBILINOGEN,URINE 0.2 mg/dL (<=1.0)
[2021-05-12 23:46] LABS: SULFOSALICYLIC ACID,URINE 4+ (Negative)
[2021-05-13] MEDS ORDERED: BISACODYL 10 MG RECTAL RECTAL SUPPOSITORY PR PRN
[2021-05-13 00:07] LABS: BACTERIA,URINE Few /HPF (None Seen); RBC,URINE None Seen /HPF (0-2); WBC,URINE 0-2 /HPF (0-5)
[2021-05-13] MEDS: ZOLPIDEM TARTRATE 5 MG TABLET PO PRN (03:25)
[2021-05-13 05:21] VITALS: BP 127/74
[2021-05-13 07:11] VITALS: BP 128/55
[2021-05-13] MEDS: HydrALAZINE HCL 50 MG TABLET PO SCH ×3 (08:19→20:06)
[2021-05-13] MEDS: PANTOPRAZOLE SODIUM 40 MG DR TABLET PO SCH (08:19)
[2021-05-13] MEDS: DILTIAZEM HCL CD 180 MG ER CAPSULE PO SCH (08:19)
[2021-05-13] MEDS: DOCUSATE SODIUM 100 MG CAPSULE PO SCH ×3 (08:19→20:06)
[2021-05-13] MEDS: APIXABAN 2.5 MG TABLET PO SCH ×2 (08:19→20:06)
[2021-05-13] MEDS ORDERED: MAGNESIUM SULFATE 3 GM in DEXTROSE 5%-WATER 100 ML IV ONE (09:15)
[2021-05-13] MEDS ORDERED: EPOETIN ALFA 10,000 UNITS/ML VIAL SQ ONE (09:15)
[2021-05-13] MEDS ORDERED: POTASSIUM CHLORIDE 10% 40 MEQ/30 ML LIQUID UDCUP PO ONE (09:15)
[2021-05-13] MEDS ORDERED: SODIUM CHLORIDE 0.9% 250 ML IV ONE (10:13)
[2021-05-13 11:05] LABS: BASOPHILS % (AUTO) 0.7 % (0.0-2.0); EOSINOPHILS % (AUTO) 1.7 % (1.0-6.0); HEMATOCRIT 26.8 % (36-46); HEMOGLOBIN 8.9 g/dL (12.0-16.0); LYMPHOCYTES # (AUTO) 1.3 K/uL (1.0-4.8); LYMPHOCYTES % (AUTO) 17.2 % (22.0-44.0); MEAN CORPUSCULAR HEMOGLOBIN 33.3 pg (26.0-34.0); MEAN CORPUSCULAR HGB CONC 33.1 G/dL (31.0-37.0); MEAN CORPUSCULAR VOLUME 101 fL (80-100); MONOCYTES # (AUTO) 0.5 K/uL (0.1-1.0); NEUTROPHILS # (AUTO) 5.3 K/uL (1.8-7.7); NEUTROPHILS % (AUTO) 73.4 % (40.0-70.0); PLATELET COUNT (AUTO) 235 K/uL (150-450); RED BLOOD CELL COUNT(AUTO) 2.67 MIL/uL (4.00-5.20); RED CELL DISTRIBUTION WIDTH 17.9 % (11.5-14.5)
[2021-05-13] MEDS ORDERED: DEXTROSE 5%-0.2% SODIUM CHL 1,000 ML IV SCH (11:15)
[2021-05-13 11:16] VITALS: BP 139/74
[2021-05-13 11:20] LABS: CALCIUM, TOTAL 8.3 mg/dL (8.8-10.5); CREATININE 3.74 mg/dL (0.60-1.30); POTASSIUM 4.2 mmol/L (3.5-5.1)
[2021-05-13] MEDS ORDERED: DEXTROSE 50%-WATER 25 GM/50 ML SYRINGE IVP PRN (12:30)
[2021-05-13] MEDS: INSULIN LISPRO 100 UNITS/ML SQ PRN ×3 (12:47→21:18)
[2021-05-13 12:49] LABS: GLUCOMETER DEV NAME(LOC) 5N.1C; GLUCOSE,POINT OF CARE 128 MG/DL (70-110)
[2021-05-13 15:10] VITALS: BP 127/50
[2021-05-13 17:45] LABS: GLUCOMETER DEV NAME(LOC) 5S.2B; GLUCOSE,POINT OF CARE 330 MG/DL (70-110)
[2021-05-13 17:45] LABS: GLUCOMETER DEV NAME(LOC) 5S.2B; GLUCOSE,POINT OF CARE 332 MG/DL (70-110)
[2021-05-13] MEDS: ACETAMINOPHEN 325 MG TABLET PO PRN (18:32)
[2021-05-13] MEDS: ERYTHROMYCIN 0.5% 3.5 GM TUBE OPHTHALMIC OINTMENT OU SCH (20:06)
[2021-05-13] MEDS: ATORVASTATIN CALCIUM 40 MG TABLET PO SCH (20:06)
[2021-05-13 20:26] VITALS: BP 142/71
[2021-05-13] MEDS: MORPHINE SULFATE 2 MG/ML SYRINGE IVP PRN (20:54)
[2021-05-13 21:26] LABS: GLUCOMETER DEV NAME(LOC) 5S.2B; GLUCOSE,POINT OF CARE 380 MG/DL (70-110)
[2021-05-13 23:51] VITALS: BP 122/68
[2021-05-14 05:19] VITALS: BP 141/59
[2021-05-14] MEDS: INSULIN LISPRO 100 UNITS/ML SQ PRN ×4 (06:14→17:23)
[2021-05-14 06:32] LABS: GLUCOMETER DEV NAME(LOC) 5S.2B; GLUCOSE,POINT OF CARE 294 MG/DL (70-110)
[2021-05-14 06:51] LABS: BASOPHILS % (AUTO) 0.6 % (0.0-2.0); EOSINOPHILS % (AUTO) 1.8 % (1.0-6.0); HEMATOCRIT 25.2 % (36-46); HEMOGLOBIN 8.4 g/dL (12.0-16.0); LYMPHOCYTES # (AUTO) 1.6 K/uL (1.0-4.8); LYMPHOCYTES % (AUTO) 19.6 % (22.0-44.0); MEAN CORPUSCULAR HEMOGLOBIN 33.6 pg (26.0-34.0); MEAN CORPUSCULAR HGB CONC 33.2 G/dL (31.0-37.0); MEAN CORPUSCULAR VOLUME 101 fL (80-100); MONOCYTES # (AUTO) 0.7 K/uL (0.1-1.0); MONOCYTES % (AUTO) 8.5 % (2.0-9.0); NEUTROPHILS # (AUTO) 5.7 K/uL (1.8-7.7); NEUTROPHILS % (AUTO) 69.5 % (40.0-70.0); PLATELET COUNT (AUTO) 222 K/uL (150-450); RED BLOOD CELL COUNT(AUTO) 2.49 MIL/uL (4.00-5.20); RED CELL DISTRIBUTION WIDTH 17.7 % (11.5-14.5)
[2021-05-14 07:05] LABS: CALCIUM, TOTAL 8.2 mg/dL (8.8-10.5); CREATININE 3.96 mg/dL (0.60-1.30); POTASSIUM 4.8 mmol/L (3.5-5.1)
[2021-05-14 08:47] VITALS: BP 125/51
[2021-05-14] MEDS: ERYTHROMYCIN 0.5% 3.5 GM TUBE OPHTHALMIC OINTMENT OU SCH ×3 (09:45→12:54)
[2021-05-14] MEDS: HydrALAZINE HCL 50 MG TABLET PO SCH ×3 (09:45→20:37)
[2021-05-14] MEDS: DOCUSATE SODIUM 100 MG CAPSULE PO SCH ×2 (09:45→20:37)
[2021-05-14] MEDS: APIXABAN 2.5 MG TABLET PO SCH ×2 (09:46→20:37)
[2021-05-14] MEDS: PANTOPRAZOLE SODIUM 40 MG DR TABLET PO SCH (09:46)
[2021-05-14] MEDS: DILTIAZEM HCL CD 180 MG ER CAPSULE PO SCH (09:46)
[2021-05-14 10:35] LABS: MAGNESIUM 2.6 mg/dL (1.80-2.40); PHOSPHORUS 6.7 mg/dL (2.5-4.9)
[2021-05-14] MEDS: EPOETIN ALFA 10,000 UNITS/ML VIAL SQ SCH ×2 (11:00→13:07)
[2021-05-14] MEDS ORDERED: FUROSEMIDE 40 MG/4 ML VIAL IVP ONE (11:00)
[2021-05-14 11:39] VITALS: BP 119/52
[2021-05-14] MEDS ORDERED: DEXTROSE 50%-WATER 25 GM/50 ML SYRINGE IVP PRN (11:45)
[2021-05-14 13:07] LABS: GLUCOMETER DEV NAME(LOC) 5S.2B; GLUCOSE,POINT OF CARE 373 MG/DL (70-110)
[2021-05-14 16:11] VITALS: BP 120/50
[2021-05-14 17:58] LABS: GLUCOMETER DEV NAME(LOC) 5S.2B; GLUCOSE,POINT OF CARE 250 MG/DL (70-110)
[2021-05-14 20:20] VITALS: BP 134/50
[2021-05-14] MEDS: ATORVASTATIN CALCIUM 40 MG TABLET PO SCH (20:38)
[2021-05-14 21:06] LABS: GLUCOMETER DEV NAME(LOC) 5S.2B; GLUCOSE,POINT OF CARE 355 MG/DL (70-110)
[2021-05-14] MEDS ORDERED: DEXTROSE 50%-WATER 25 GM/50 ML SYG IVP PRN (21:30)
[2021-05-14] MEDS ORDERED: DiphenhydrAMINE HCL 25 MG CAPSULE PO ONE (21:30)
[2021-05-14] MEDS: INSULIN REGULAR, HUMAN 100 UNITS/ML SQ PRN (22:23)
[2021-05-15 00:04] VITALS: BP 136/65
[2021-05-15] MEDS: ACETAMINOPHEN 325 MG TABLET PO PRN (05:42)
[2021-05-15 05:50] VITALS: BP 133/54
[2021-05-15 06:06] LABS: CREATININE 4.08 mg/dL (0.60-1.30); MAGNESIUM 2.2 mg/dL (1.80-2.40); PHOSPHORUS 5.6 mg/dL (2.5-4.9); POTASSIUM 5.2 mmol/L (3.5-5.1)
[2021-05-15 06:06] LABS: GLUCOMETER DEV NAME(LOC) 5S.2B; GLUCOSE,POINT OF CARE 240 MG/DL (70-110)
[2021-05-15 06:09] LABS: BASOPHILS % (AUTO) 0.3 % (0.0-2.0); EOSINOPHILS % (AUTO) 1.6 % (1.0-6.0); HEMATOCRIT 24.6 % (36-46); HEMOGLOBIN 8.1 g/dL (12.0-16.0); LYMPHOCYTES # (AUTO) 2.2 K/uL (1.0-4.8); LYMPHOCYTES % (AUTO) 21.3 % (22.0-44.0); MEAN CORPUSCULAR HEMOGLOBIN 33.2 pg (26.0-34.0); MEAN CORPUSCULAR HGB CONC 33.1 G/dL (31.0-37.0); MEAN CORPUSCULAR VOLUME 100 fL (80-100); MONOCYTES # (AUTO) 0.9 K/uL (0.1-1.0); MONOCYTES % (AUTO) 9.1 % (2.0-9.0); NEUTROPHILS % (AUTO) 67.7 % (40.0-70.0); PLATELET COUNT (AUTO) 232 K/uL (150-450); RED BLOOD CELL COUNT(AUTO) 2.45 MIL/uL (4.00-5.20); RED CELL DISTRIBUTION WIDTH 17.3 % (11.5-14.5)
[2021-05-15] MEDS: INSULIN REGULAR, HUMAN 100 UNITS/ML SQ PRN ×5 (06:34→20:57)
[2021-05-15 07:33] VITALS: BP 123/44
[2021-05-15] MEDS: DOCUSATE SODIUM 100 MG CAPSULE PO SCH ×2 (08:44→20:56)
[2021-05-15] MEDS: DILTIAZEM HCL CD 180 MG ER CAPSULE PO SCH (08:44)
[2021-05-15] MEDS: HydrALAZINE HCL 50 MG TABLET PO SCH ×3 (08:45→20:55)
[2021-05-15] MEDS: PANTOPRAZOLE SODIUM 40 MG DR TABLET PO SCH (08:45)
[2021-05-15] MEDS: APIXABAN 2.5 MG TABLET PO SCH ×2 (08:45→20:55)
[2021-05-15 11:26] LABS: GLUCOMETER DEV NAME(LOC) 5S.2B; GLUCOSE,POINT OF CARE 399 MG/DL (70-110)
[2021-05-15 11:32] VITALS: BP 138/60
[2021-05-15] MEDS: CALCIUM ACETATE 667 MG CAPSULE PO SCH ×2 (12:31→17:29)
[2021-05-15] MEDS: SODIUM ZIRCONIUM CYCLOSILICATE 5 GM POWDER PACKET PO SCH (12:31)
[2021-05-15 15:12] VITALS: BP 144/71
[2021-05-15 15:18] LABS: GLUCOSE,POINT OF CARE 74 MG/DL (70-110)
[2021-05-15] MEDS: MAGNESIUM HYDROXIDE SUSPENSION 30 ML UDCUP PO PRN (15:30)
[2021-05-15 17:45] LABS: GLUCOMETER DEV NAME(LOC) 5S.2B; GLUCOSE,POINT OF CARE 403 MG/DL (70-110)
[2021-05-15 19:30] VITALS: BP 152/62
[2021-05-15] MEDS: ATORVASTATIN CALCIUM 40 MG TABLET PO SCH (20:56)
[2021-05-15] MEDS: ERYTHROMYCIN 0.5% 3.5 GM TUBE OPHTHALMIC OINTMENT OU SCH (20:58)
[2021-05-15] MEDS ORDERED: INSULIN REGULAR, HUMAN 100 UNITS/ML SQ ONE (21:00)
[2021-05-15] MEDS ORDERED: INSULIN REGULAR, HUMAN 100 UNITS/ML IVP ONE (21:00)
[2021-05-15] MEDS: ZOLPIDEM TARTRATE 5 MG TABLET PO PRN (21:27)
[2021-05-16] VITALS (7 sets, daily range): BP systolic 137–156; BP diastolic 48–79
[2021-05-16] MEDS ORDERED: INSULIN REGULAR, HUMAN 100 UNITS/ML SQ ONE (06:15)
[2021-05-16 07:23] LABS: GLUCOMETER DEV NAME(LOC) 5S.2B; GLUCOSE,POINT OF CARE 409 MG/DL (70-110)
[2021-05-16 07:23] LABS: GLUCOMETER DEV NAME(LOC) 5S.2B; GLUCOSE,POINT OF CARE 421 MG/DL (70-110)
[2021-05-16 07:34] LABS: BASOPHILS % (AUTO) 0.6 % (0.0-2.0); EOSINOPHILS % (AUTO) 1.3 % (1.0-6.0); HEMATOCRIT 25.1 % (36-46); HEMOGLOBIN 8.2 g/dL (12.0-16.0); LYMPHOCYTES # (AUTO) 1.6 K/uL (1.0-4.8); LYMPHOCYTES % (AUTO) 17.5 % (22.0-44.0); MEAN CORPUSCULAR HEMOGLOBIN 33.1 pg (26.0-34.0); MEAN CORPUSCULAR HGB CONC 32.8 G/dL (31.0-37.0); MEAN CORPUSCULAR VOLUME 101 fL (80-100); MONOCYTES # (AUTO) 0.9 K/uL (0.1-1.0); MONOCYTES % (AUTO) 9.4 % (2.0-9.0); NEUTROPHILS # (AUTO) 6.5 K/uL (1.8-7.7); NEUTROPHILS % (AUTO) 71.2 % (40.0-70.0); PLATELET COUNT (AUTO) 237 K/uL (150-450); RED BLOOD CELL COUNT(AUTO) 2.49 MIL/uL (4.00-5.20); RED CELL DISTRIBUTION WIDTH 16.8 % (11.5-14.5)
[2021-05-16 07:54] LABS: CALCIUM, TOTAL 8.4 mg/dL (8.8-10.5); CREATININE 4.14 mg/dL (0.60-1.30); MAGNESIUM 2.4 mg/dL (1.80-2.40); PHOSPHORUS 3.6 mg/dL (2.5-4.9); POTASSIUM 5.2 mmol/L (3.5-5.1)
[2021-05-16] MEDS: DOCUSATE SODIUM 100 MG CAPSULE PO SCH ×2 (08:39→20:04)
[2021-05-16] MEDS: HydrALAZINE HCL 50 MG TABLET PO SCH ×3 (08:39→20:03)
[2021-05-16] MEDS: DILTIAZEM HCL CD 180 MG ER CAPSULE PO SCH (08:39)
[2021-05-16] MEDS: SODIUM ZIRCONIUM CYCLOSILICATE 5 GM POWDER PACKET PO SCH (08:39)
[2021-05-16] MEDS: PANTOPRAZOLE SODIUM 40 MG DR TABLET PO SCH (08:40)
[2021-05-16] MEDS: APIXABAN 2.5 MG TABLET PO SCH ×2 (08:40→20:03)
[2021-05-16] MEDS: CALCIUM ACETATE 667 MG CAPSULE PO SCH ×3 (08:40→17:03)
[2021-05-16] MEDS: INSULIN REGULAR, HUMAN 100 UNITS/ML SQ PRN ×4 (08:43→20:04)
[2021-05-16] MEDS: ERYTHROMYCIN 0.5% 3.5 GM TUBE OPHTHALMIC OINTMENT OU SCH ×2 (08:44→20:07)
[2021-05-16] MEDS: INSULIN REGULAR, HUMAN 100 UNITS/ML SQ SCH ×2 (11:36→17:12)
[2021-05-16 11:52] LABS: GLUCOMETER DEV NAME(LOC) 5S.2B; GLUCOSE,POINT OF CARE 304 MG/DL (70-110)
[2021-05-16] MEDS ORDERED: SODIUM CHLORIDE 0.9% 1,000 ML IV ONE (17:15)
[2021-05-16 17:22] LABS: GLUCOMETER DEV NAME(LOC) 5S.2B; GLUCOSE,POINT OF CARE 273 MG/DL (70-110)
[2021-05-16] MEDS: ATORVASTATIN CALCIUM 40 MG TABLET PO SCH (20:03)
[2021-05-16 21:47] LABS: GLUCOMETER DEV NAME(LOC) 5S.2B; GLUCOSE,POINT OF CARE 323 MG/DL (70-110)
[2021-05-17 05:10] VITALS: BP 160/67
[2021-05-17] MEDS: INSULIN REGULAR, HUMAN 100 UNITS/ML SQ SCH ×3 (06:30→17:30)
[2021-05-17] MEDS: INSULIN REGULAR, HUMAN 100 UNITS/ML SQ PRN ×4 (06:30→20:51)
[2021-05-17 07:27] LABS: EOSINOPHILS % (AUTO) 1.3 % (1.0-6.0); HEMATOCRIT 25.8 % (36-46); HEMOGLOBIN 8.5 g/dL (12.0-16.0); LYMPHOCYTES # (AUTO) 1.6 K/uL (1.0-4.8); LYMPHOCYTES % (AUTO) 17.3 % (22.0-44.0); MEAN CORPUSCULAR HEMOGLOBIN 32.7 pg (26.0-34.0); MEAN CORPUSCULAR HGB CONC 32.8 G/dL (31.0-37.0); MEAN CORPUSCULAR VOLUME 100 fL (80-100); MONOCYTES # (AUTO) 0.7 K/uL (0.1-1.0); MONOCYTES % (AUTO) 7.3 % (2.0-9.0); NEUTROPHILS # (AUTO) 6.6 K/uL (1.8-7.7); NEUTROPHILS % (AUTO) 73.1 % (40.0-70.0); PLATELET COUNT (AUTO) 243 K/uL (150-450); RED BLOOD CELL COUNT(AUTO) 2.58 MIL/uL (4.00-5.20); RED CELL DISTRIBUTION WIDTH 17.2 % (11.5-14.5)
[2021-05-17 07:36] LABS: CALCIUM, TOTAL 8.6 mg/dL (8.8-10.5); CREATININE 3.64 mg/dL (0.60-1.30); MAGNESIUM 2.1 mg/dL (1.80-2.40); PHOSPHORUS 3.1 mg/dL (2.5-4.9); POTASSIUM 4.6 mmol/L (3.5-5.1)
[2021-05-17 07:38] LABS: MAGNESIUM 2.1 mg/dL (1.80-2.40); PHOSPHORUS 3.1 mg/dL (2.5-4.9)
[2021-05-17 07:39] VITALS: BP 134/77
[2021-05-17] MEDS: HydrALAZINE HCL 50 MG TABLET PO SCH ×3 (09:00→20:49)
[2021-05-17] MEDS: APIXABAN 2.5 MG TABLET PO SCH (09:15)
[2021-05-17] MEDS: PANTOPRAZOLE SODIUM 40 MG DR TABLET PO SCH (09:15)
[2021-05-17] MEDS: DOCUSATE SODIUM 100 MG CAPSULE PO SCH ×2 (09:15→20:50)
[2021-05-17] MEDS: CALCIUM ACETATE 667 MG CAPSULE PO SCH ×3 (09:15→16:57)
[2021-05-17] MEDS: DILTIAZEM HCL CD 180 MG ER CAPSULE PO SCH (09:18)
[2021-05-17] MEDS: SODIUM ZIRCONIUM CYCLOSILICATE 5 GM POWDER PACKET PO SCH (09:19)
[2021-05-17] MEDS: ERYTHROMYCIN 0.5% 3.5 GM TUBE OPHTHALMIC OINTMENT OU SCH ×2 (09:19→20:49)
[2021-05-17 11:23] VITALS: BP 142/72
[2021-05-17] MEDS ORDERED: SODIUM CHLORIDE 0.9% 1,000 ML IV ONE (13:00)
[2021-05-17 15:04] VITALS: BP 152/78
[2021-05-17] MEDS: ONDANSETRON HCL 4 MG/2 ML VIAL IVP PRN (16:57)
[2021-05-17 19:15] VITALS: BP 151/84
[2021-05-17 20:43] LABS: GLUCOMETER DEV NAME(LOC) 5S.1; GLUCOSE,POINT OF CARE 240 MG/DL (70-110)
[2021-05-17 20:43] LABS: GLUCOMETER DEV NAME(LOC) 5S.1; GLUCOSE,POINT OF CARE 210 MG/DL (70-110)
[2021-05-17] MEDS: ATORVASTATIN CALCIUM 40 MG TABLET PO SCH (20:50)
[2021-05-17] MEDS: ETHYL ALCOHOL 62% ANTISEPTIC NASAL INHALANT 0.6 ML AMPUL NASAL SCH (21:00)
[2021-05-17] MEDS: DiphenhydrAMINE HCL 25 MG CAPSULE PO SCH (21:16)
[2021-05-17 23:45] VITALS: BP 144/71
[2021-05-18] MEDS: DiphenhydrAMINE HCL 25 MG CAPSULE PO SCH (02:37)
[2021-05-18 03:40] VITALS: BP 141/62
[2021-05-18 04:37] LABS: GLUCOMETER DEV NAME(LOC) 5S.2B; GLUCOSE,POINT OF CARE 259 MG/DL (70-110)
[2021-05-18 06:58] LABS: CREATININE 3.55 mg/dL (0.60-1.30); POTASSIUM 4.5 mmol/L (3.5-5.1)
[2021-05-18 06:59] LABS: CALCIUM, TOTAL 9.1 mg/dL (8.8-10.5); MAGNESIUM 1.8 mg/dL (1.80-2.40)
[2021-05-18 07:00] LABS: BASOPHILS % (AUTO) 0.9 % (0.0-2.0); HEMATOCRIT 25.8 % (36-46); HEMOGLOBIN 8.6 g/dL (12.0-16.0); LYMPHOCYTES # (AUTO) 1.4 K/uL (1.0-4.8); LYMPHOCYTES % (AUTO) 16.6 % (22.0-44.0); MEAN CORPUSCULAR HEMOGLOBIN 33.5 pg (26.0-34.0); MEAN CORPUSCULAR HGB CONC 33.3 G/dL (31.0-37.0); MEAN CORPUSCULAR VOLUME 101 fL (80-100); MONOCYTES # (AUTO) 0.7 K/uL (0.1-1.0); MONOCYTES % (AUTO) 8.2 % (2.0-9.0); NEUTROPHILS # (AUTO) 6.3 K/uL (1.8-7.7); NEUTROPHILS % (AUTO) 73.3 % (40.0-70.0); PLATELET COUNT (AUTO) 239 K/uL (150-450); RED BLOOD CELL COUNT(AUTO) 2.56 MIL/uL (4.00-5.20); RED CELL DISTRIBUTION WIDTH 17.7 % (11.5-14.5)
[2021-05-18] MEDS: INSULIN REGULAR, HUMAN 100 UNITS/ML SQ SCH ×3 (07:30→17:40)
[2021-05-18 07:37] VITALS: BP 136/72
[2021-05-18] MEDS: CALCIUM ACETATE 667 MG CAPSULE PO SCH ×3 (08:00→18:06)
[2021-05-18] MEDS ORDERED: HEPARIN SODIUM,PORCINE 5,000 UNITS/ML VIAL ONE (08:44)
[2021-05-18] MEDS ORDERED: SODIUM CHLORIDE 0.9% 20 ML ONE (08:45)
[2021-05-18] MEDS ORDERED: SODIUM CHLORIDE 0.9% 100 ML ONE (08:45)
[2021-05-18] MEDS ORDERED: VANCOMYCIN HCL 1 GM/VIAL ONE (08:45)
[2021-05-18] MEDS ORDERED: LIDOCAINE/PF 1% 30 ML VIAL ONE (08:45)
[2021-05-18] MEDS ORDERED: SODIUM CHLORIDE 0.9% 1,000 ML IV ONE (08:50)
[2021-05-18] MEDS: ETHYL ALCOHOL 62% ANTISEPTIC NASAL INHALANT 0.6 ML AMPUL NASAL SCH ×2 (08:59→20:06)
[2021-05-18] MEDS: ERYTHROMYCIN 0.5% 3.5 GM TUBE OPHTHALMIC OINTMENT OU SCH ×2 (08:59→20:06)
[2021-05-18] MEDS: DILTIAZEM HCL CD 180 MG ER CAPSULE PO SCH (09:00)
[2021-05-18] MEDS: HydrALAZINE HCL 50 MG TABLET PO SCH ×3 (09:00→23:35)
[2021-05-18] MEDS: PANTOPRAZOLE SODIUM 40 MG DR TABLET PO SCH (09:00)
[2021-05-18] MEDS: DOCUSATE SODIUM 100 MG CAPSULE PO SCH ×2 (09:00→20:06)
[2021-05-18] MEDS: SODIUM ZIRCONIUM CYCLOSILICATE 5 GM POWDER PACKET PO SCH (09:00)
[2021-05-18] MEDS ORDERED: MEPERIDINE-PF 25 MG/ML VIAL IVP PRN (10:00)
[2021-05-18] MEDS ORDERED: HYDROmorphone 2 MG/ML VIAL IVP PRN (10:00)
[2021-05-18] MEDS ORDERED: PROTAMINE SULFATE 10 MG/ML 5 ML VIAL ONE (11:27)
[2021-05-18] MEDS ORDERED: MIDAZOLAM HCL 2 MG/2 ML VIAL IVP ONE (12:00)
[2021-05-18] MEDS ORDERED: KETAMINE HCL 50 MG/ML 10 ML VIAL IVP ONE (12:00)
[2021-05-18] MEDS ORDERED: 0.9% SODIUM CHLORIDE 10 ML VIAL IVP ONE (12:00)
[2021-05-18] MEDS ORDERED: FentaNYL CITRATE PF 100 MCG/2 ML VIAL IVP ONE (12:00)
[2021-05-18] MEDS ORDERED: PROPOFOL 1% 20 ML VIAL IVP ONE (12:00)
[2021-05-18] MEDS ORDERED: HEPARIN SODIUM,PORCINE 1,000 UNITS/ML 10 ML VIAL IVP ONE (12:00)
[2021-05-18] MEDS ORDERED: FentaNYL CITRATE PF 100 MCG/2 ML VIAL ONE (12:04)
[2021-05-18] MEDS: FentaNYL CITRATE PF 100 MCG/2 ML VIAL IVP PRN ×2 (12:05→12:34)
[2021-05-18] MEDS: MORPHINE SULFATE 2 MG/ML SYRINGE IVP PRN ×2 (14:53→19:54)
[2021-05-18] MEDS: ONDANSETRON HCL 4 MG/2 ML VIAL IVP PRN ×2 (14:54→19:52)
[2021-05-18 15:32] VITALS: BP 163/90
[2021-05-18] MEDS: HYDROCODONE/ACETAMINOPHEN 5-325 MG TABLET PO PRN ×2 (17:32→23:34)
[2021-05-18] MEDS: INSULIN REGULAR, HUMAN 100 UNITS/ML SQ PRN ×2 (17:40→21:47)
[2021-05-18 18:17] LABS: GLUCOMETER DEV NAME(LOC) 5S.1; GLUCOSE,POINT OF CARE 241 MG/DL (70-110)
[2021-05-18 19:55] LABS: GLUCOMETER DEV NAME(LOC) 5N.1C; GLUCOSE,POINT OF CARE 224 MG/DL (70-110)
[2021-05-18 20:02] VITALS: BP 156/72
[2021-05-18] MEDS: OXYGEN THERAPY IH SCH (20:06)
[2021-05-18] MEDS: ATORVASTATIN CALCIUM 40 MG TABLET PO SCH (21:42)
[2021-05-18 23:35] VITALS: BP 195/73
[2021-05-19] VITALS (8 sets, daily range): BP systolic 137–166; BP diastolic 63–87
[2021-05-19] MEDS ORDERED: DIGOXIN 250 MCG/ML 2 ML AMP IVP ONE ×2 (02:30→03:00)
[2021-05-19] MEDS: APIXABAN 2.5 MG TABLET PO SCH ×2 (02:39→22:22)
[2021-05-19] MEDS: ZOLPIDEM TARTRATE 5 MG TABLET PO PRN (02:55)
[2021-05-19] MEDS: INSULIN REGULAR, HUMAN 100 UNITS/ML SQ PRN ×4 (06:33→22:27)
[2021-05-19] MEDS: MORPHINE SULFATE 2 MG/ML SYRINGE IVP PRN ×3 (06:35→15:26)
[2021-05-19 07:10] LABS: BASOPHILS % (AUTO) 0.8 % (0.0-2.0); EOSINOPHILS % (AUTO) 1.5 % (1.0-6.0); HEMOGLOBIN 8.9 g/dL (12.0-16.0); LYMPHOCYTES # (AUTO) 1.4 K/uL (1.0-4.8); LYMPHOCYTES % (AUTO) 15.3 % (22.0-44.0); MEAN CORPUSCULAR HEMOGLOBIN 33.2 pg (26.0-34.0); MEAN CORPUSCULAR VOLUME 101 fL (80-100); MONOCYTES # (AUTO) 0.9 K/uL (0.1-1.0); MONOCYTES % (AUTO) 9.8 % (2.0-9.0); NEUTROPHILS # (AUTO) 6.5 K/uL (1.8-7.7); NEUTROPHILS % (AUTO) 72.6 % (40.0-70.0); PLATELET COUNT (AUTO) 252 K/uL (150-450); RED BLOOD CELL COUNT(AUTO) 2.68 MIL/uL (4.00-5.20); RED CELL DISTRIBUTION WIDTH 17.4 % (11.5-14.5)
[2021-05-19 07:21] LABS: CALCIUM, TOTAL 8.8 mg/dL (8.8-10.5); CREATININE 3.38 mg/dL (0.60-1.30); POTASSIUM 4.5 mmol/L (3.5-5.1)
[2021-05-19] MEDS: OXYGEN THERAPY IH SCH ×2 (07:59→22:30)
[2021-05-19] MEDS: MAGNESIUM HYDROXIDE SUSPENSION 30 ML UDCUP PO PRN (08:01)
[2021-05-19] MEDS: INSULIN REGULAR, HUMAN 100 UNITS/ML SQ SCH ×3 (08:01→17:29)
[2021-05-19] MEDS: DILTIAZEM HCL CD 180 MG ER CAPSULE PO SCH (08:01)
[2021-05-19] MEDS: HydrALAZINE HCL 50 MG TABLET PO SCH ×3 (08:01→22:22)
[2021-05-19] MEDS: ETHYL ALCOHOL 62% ANTISEPTIC NASAL INHALANT 0.6 ML AMPUL NASAL SCH ×2 (08:01→21:00)
[2021-05-19] MEDS: PANTOPRAZOLE SODIUM 40 MG DR TABLET PO SCH (08:01)
[2021-05-19] MEDS: CALCIUM ACETATE 667 MG CAPSULE PO SCH ×3 (08:02→17:57)
[2021-05-19] MEDS: DOCUSATE SODIUM 100 MG CAPSULE PO SCH ×2 (08:02→22:22)
[2021-05-19] MEDS ORDERED: HEPARIN SODIUM,PORCINE 5,000 UNITS/ML VIAL SQ SCH (09:00)
[2021-05-19] MEDS: ERYTHROMYCIN 0.5% 3.5 GM TUBE OPHTHALMIC OINTMENT OU SCH ×3 (09:00→22:22)
[2021-05-19 14:56] LABS: GLUCOMETER DEV NAME(LOC) 5N.1C; GLUCOSE,POINT OF CARE 249 MG/DL (70-110)
[2021-05-19 14:57] LABS: GLUCOMETER DEV NAME(LOC) 5N.1C; GLUCOSE,POINT OF CARE 211 MG/DL (70-110)
[2021-05-19 14:57] LABS: GLUCOMETER DEV NAME(LOC) 5S.1; GLUCOSE,POINT OF CARE 208 MG/DL (70-110)
[2021-05-19 20:19] LABS: GLUCOMETER DEV NAME(LOC) 5N.3; GLUCOSE,POINT OF CARE 285 MG/DL (70-110)
[2021-05-19 20:19] LABS: GLUCOMETER DEV NAME(LOC) 5N.3; GLUCOSE,POINT OF CARE 166 MG/DL (70-110)
[2021-05-19 22:17] LABS: GLUCOMETER DEV NAME(LOC) 5N.3; GLUCOSE,POINT OF CARE 240 MG/DL (70-110)
[2021-05-19] MEDS: ATORVASTATIN CALCIUM 40 MG TABLET PO SCH (22:22)
[2021-05-19] MEDS: HYDROCODONE/ACETAMINOPHEN 5-325 MG TABLET PO PRN (22:28)
[2021-05-20 03:43] VITALS: BP 125/63
[2021-05-20 06:01] LABS: GLUCOMETER DEV NAME(LOC) 5S.1; GLUCOSE,POINT OF CARE 265 MG/DL (70-110)
[2021-05-20] MEDS: INSULIN REGULAR, HUMAN 100 UNITS/ML SQ SCH ×2 (06:31→11:29)
[2021-05-20] MEDS: INSULIN REGULAR, HUMAN 100 UNITS/ML SQ PRN ×2 (06:33→11:29)
[2021-05-20 07:51] VITALS: BP 138/66
[2021-05-20 08:28] LABS: CALCIUM, TOTAL 8.7 mg/dL (8.8-10.5); CREATININE 3.8 mg/dL (0.60-1.30); POTASSIUM 4.4 mmol/L (3.5-5.1)
[2021-05-20] MEDS: ETHYL ALCOHOL 62% ANTISEPTIC NASAL INHALANT 0.6 ML AMPUL NASAL SCH (08:32)
[2021-05-20] MEDS: HYDROCODONE/ACETAMINOPHEN 5-325 MG TABLET PO PRN (08:32)
[2021-05-20] MEDS: CALCIUM ACETATE 667 MG CAPSULE PO SCH ×2 (08:32→12:33)
[2021-05-20] MEDS: DOCUSATE SODIUM 100 MG CAPSULE PO SCH (08:32)
[2021-05-20] MEDS: APIXABAN 2.5 MG TABLET PO SCH (08:32)
[2021-05-20] MEDS: ERYTHROMYCIN 0.5% 3.5 GM TUBE OPHTHALMIC OINTMENT OU SCH (08:32)
[2021-05-20] MEDS: PANTOPRAZOLE SODIUM 40 MG DR TABLET PO SCH (08:32)
[2021-05-20] MEDS: OXYGEN THERAPY IH SCH (08:33)
[2021-05-20] MEDS: HydrALAZINE HCL 50 MG TABLET PO SCH (08:33)
[2021-05-20] MEDS: DILTIAZEM HCL CD 180 MG ER CAPSULE PO SCH (08:33)
[2021-05-20] MEDS ORDERED: FUROSEMIDE 20 MG TABLET PO SCH (09:00)
[2021-05-20] MEDS ORDERED: FURO20 PO (09:54)
[2021-05-20 11:33] VITALS: BP 128/68
[2021-05-20 11:35] LABS: GLUCOMETER DEV NAME(LOC) 5N.3; GLUCOSE,POINT OF CARE 231 MG/DL (70-110)
[2021-05-20 15:24] VITALS: BP 140/68
== END 2021-05-20 16:15 | disposition home or self-care (01) | DRG 264 ==
LOC: EMS 17:36 → 5N 05-13 04:10 → 5S 05-17 06:59
PROVIDERS: ADMIT Internal Medicine; ATTEND Internal Medicine
PROC: 03170ZD Bypass Right Brachial Artery to Upper Arm Vein, Open Approach (ICD-10-PCS; principal; 2021-05-18 09:00)
DX: I13.2 Hypertensive heart and chronic kidney disease with heart failure and with stage 5 chronic kidney disease, or end stage renal disease (principal); N18.6 End stage renal disease; E87.0 Hyperosmolality and hypernatremia; E11.22 Type 2 diabetes mellitus with diabetic chronic kidney disease; E87.6 Hypokalemia; E78.5 Hyperlipidemia, unspecified; D63.1 Anemia in chronic kidney disease; E11.43 Type 2 diabetes mellitus with diabetic autonomic (poly)neuropathy; E66.9 Obesity, unspecified; E83.42 Hypomagnesemia; H10.9 Unspecified conjunctivitis; J45.909 Unspecified asthma, uncomplicated; Z20.822 Contact with and (suspected) exposure to COVID-19; I50.9 Heart failure, unspecified; K31.84 Gastroparesis; E11.51 Type 2 diabetes mellitus with diabetic peripheral angiopathy without gangrene; E87.5 Hyperkalemia; E83.39 Other disorders of phosphorus metabolism; E66.01 Morbid (severe) obesity due to excess calories; I48.0 Paroxysmal atrial fibrillation; E11.65 Type 2 diabetes mellitus with hyperglycemia; Z91.15 Patient's noncompliance with renal dialysis; Z91.19 Patient's noncompliance with other medical treatment and regimen; Z99.2 Dependence on renal dialysis; Z68.34 Body mass index [BMI] 34.0-34.9, adult; Z88.8 Allergy status to other drugs, medicaments and biological substances; Z88.0 Allergy status to penicillin
CPT/HCPCS: 51701; 71045; 80048; 80053; 81001; 81002; 82550; 82948; 82962; 83036; 83690; 83735; 83880; 84100; 84484; 85025; 87081; 93005; 93970; 97162; 97166; 97535; 99285; G0378; J0690; J0885; J1160; J1644; J1815; J1940; J2250; J2270; J2405; J2704; J2720; J3010; J3370; J3475; J3490; J7030; J7050; J7060; Q0162; Q9967; 36415-L1; 36415-TC; C1716; U0003; Z7610